=== PATIENT | female | born 1940 | race Caucasian/White ===

== ENCOUNTER 2019-03-08 13:39 | Inpatient (IN) | payer BC, OTHER ==
[2019-03-08 14:25] LABS: Absolute Lymphocytes (CBC) 0.5 K/uL (0.7-4.9); Hematocrit 42.3 % (36.0-45.0); Lymphocytes % 2.2 % (15.3-44.8); Monocytes % 2.6 % (3.3-12.3); RBC Red Blood Cell Count 4.55 M/uL (3.86-4.86)
[2019-03-08 14:34] LABS: Albumin 3.3 g/dL (3.4-5.0); Bilirubin Direct 0.2 mg/dL (0-0.2); Bilirubin Total 0.7 mg/dL (0.2-1.0); Potassium 3.1 mmol/L (3.5-5.1); Protein, Total 6.2 g/dL (6.4-8.2)
[2019-03-08 14:56] LABS: Platelet Estimate ADEQ
[2019-03-08 14:57] LABS: Blood Morphology Comment NOT SEEN (NOT SEEN)
[2019-03-08] MEDS ORDERED: NA CHLORIDE 0.9% 1,000 ML ONE ×2 (15:23→16:56)
[2019-03-08 15:41] LABS: Urine Bacteria <20 /HPF (<20); Urine RBC NONE SEEN /HPF (NONE SEEN)
[2019-03-08 15:42] LABS: Urine Culture Reflex Order NOT NEEDED
[2019-03-08 15:49] LABS: Urine Blood NEGATIVE (NEG); Urine Glucose NEGATIVE (NEG); Urine Protein 1+ (NEG); Urine pH 6.5 (5.0-7.0)
--- NOTE | 2019-03-08 16:09 | RAD REPORT ---
EXAM DESCRIPTION: CT - Abdomen Pelvis Wo Contrast - 03/08/2019 3:55 pm CLINICAL HISTORY: Abdominal pain. diarrhea, hypotensive COMPARISON: No comparisons TECHNIQUE: CT imaging of the abdomen and pelvis was performed without contrast. Solid organ, bowel a nd vascular assessment is limited due to lack of IV and oral contrast. All CT scans are performed using dose optimization technique as appropriate and may include automated exposure control or mA/KV adjustment according to patient size. FINDINGS: Linear subsegmental atelectasis is present in both lung bases. The liver, spleen, pancreas, adrenal glands and kidneys are within normal limits for a limited non-co ntrast examination. No bowel obstruction, free air, free fluid or abscess. The appendix is not identified as a discrete structure, however, no secondary findings of appendicitis are identified. The osseous structures are within normal limits. IMPRESSION: No acute intra-abdominal or pelvic findings. A limited non-contrast examination was performed as detailed.
--- NOTE | 2019-03-08 16:09 | RAD REPORT ---
EXAM DESCRIPTION: RAD - Chest Single View - 03/08/2019 3:56 pm CLINICAL HISTORY: chills, hypotension Chest pain. COMPARISON: <Comparisons> FINDINGS: Portable technique limits examination quality. The lungs are grossly clear. The heart is normal in size. No displaced fractures. IMPRESSION: No acute intrathoracic process suspected.
--- NOTE | 2019-03-08 16:35 | ER ---
Nurse's Notes [facility] Name: Griselda Dexter Age: 78 yrs Sex: Female : 1940 Arrival Date: 03/08/2019 Time: 13:46 Bed 6 Private MD: Diagnosis: Hypotension, unspecified;Dehydration;Acute kidney failure, unspecified;Bandemia Presentation: 03/08 13:37 Presenting complaint: EMS states: called out by pt's friend who had been trying to get sv a hold of her, pt was able to ambulate to her door after about an hour. EMS reports pt was sluggish, fatigued and "maybe slurred speech." BP 98/60 HR-120s, orthostatics done BP 80/40, pt c/o loose stool. NIH negative. Transition of care: patient was not received from another setting of care. Onset of symptoms was March 07, 2019. Risk Assessment: Do you want to hurt yourself or someone else? Patient reports no desire to harm self or others. Initial Sepsis Screen: Does the patient meet any 2 criteria? HR > 90 bpm. Does the patient have a suspected source of infection? No. Patient's initial sepsis screen is negative. Care prior to arrival: Medication(s) given: Normal saline infusion, 1000 mL, IV initiated. 20 GA, in the left antecubital area. 13:37 Method Of Arrival: EMS: [facility] sv 13:37 Acuity: GAMAL 2 sv Historical: - Allergies: 14:39 Compazine; sv - Home Meds: 14:39 Metoprolol Tartrate Oral [Active]; Aspirin Oral [Active]; sv - PMHx: 14:39 Hypertension; hyperthyroidism; sv - Immunization history:: Adult Immunizations up to date. - Social history:: Smoking status: Patient/guardian denies using tobacco. - Ebola Screening: : No symptoms or risks identified at this time. - Family history:: not pertinent. - Hospitalizations: : No recent hospitalization is reported. Screenin:41 Abuse screen: Denies threats or abuse. Denies injuries from another. Nutritional sv screening: No deficits noted. Tuberculosis screening: No symptoms or risk factors identified. Fall Risk None identified. Assessment: 13:45 General: Appears in no apparent distress. uncomfortable, Behavior is calm, cooperative. tr5 Pain: Complains of pain in back of head. Neuro: Level of Consciousness is awake, alert, Oriented to person, place, time, Turn Down Worker are equal bilaterally Moves all extremities. Reports weakness Denies blurred vision. Cardiovascular: Heart tones present Bruits absent Capillary refill < 3 seconds Pulses are all present. Respiratory: Airway is patent Trachea midline Respiratory effort is even, unlabored, Respiratory pattern is regular, symmetrical, Breath sounds are clear bilaterally. GI: Abdomen is flat, Stools are reported to be diarrhea. Last BM was March 08, 2019. Bowel sounds present X 4 quads. Abd is soft and non tender Reports diarrhea, nausea. : No signs and/or symptoms were reported regarding the genitourinary system. EENT: No signs and/or symptoms were reported regarding the EENT system. Derm: Skin is intact, is healthy with good turgor, Skin is dry, Skin is pink, warm \\T\\ dry. Musculoskeletal: Capillary refill < 3 seconds. 15:11 Reassessment: Patient and/or family updated on plan of care and expected duration. Pain tr5 level reassessed. Patient is alert, oriented x 3, equal unlabored respirations, skin warm/dry/pink. 15:15 Reassessment: CT called to come get pt for CT. sv 16:54 Reassessment: Patient appears in no apparent distress at this time. No changes from sv previously documented assessment. Patient and/or family updated on plan of care and expected duration. Pain level reassessed. Patient is alert, oriented x 3, equal unlabored respirations, skin warm/dry/pink. 17:26 Reassessment: Patient appears in no apparent distress at this time. Patient and/or sv family updated on plan of care and expected duration. Pain level reassessed. Patient is alert, oriented x 3, equal unlabored respirations, skin warm/dry/pink. Vital Signs: 13:45 BP 83 / 52; Pulse 102; Resp 18; Temp 98.7; Pulse Ox 99% ; Weight 65.77 kg; Height 5 ft. sv 4 in. (162.56 cm); Pain 0/10; 14:42 BP 84 / 49; Pulse 101; Resp 24; Pulse Ox 100% on R/A; sv 15:10 BP 93 / 62; Pulse 103; Resp 24; Pulse Ox 98% on R/A; sv 16:28 BP 81 / 46; Pulse 101; Resp 18; Pulse Ox 98% on R/A; sv 17:17 BP 104 / 50; Pulse 103; Resp 18; Temp 98.5(O); Pulse Ox 98% on R/A; sv 17:33 BP 118 / 58; Pulse 100; Resp 19 S; Pulse Ox 95% on R/A; sg 18:00 BP 116 / 56; Pulse 100; Resp 17; Temp 98.7; Pulse Ox 98% on R/A; Pain 0/10; sg 13:45 Body Mass Index 24.89 (65.77 kg, 162.56 cm) sv ED Course: 13:37 Maintain EMS IV. Dressing intact. Good blood return noted. Site clean \\T\\ dry. Gauge \\T\\ sv site: 20G L AC. 13:45 Initial lab(s) drawn, by me, sent to lab. sv 13:45 Arm band placed on. sv 13:45 Patient has correct armband on for positive identification. Placed in gown. Bed in low sv position. Call light in reach. Side rails up X2. spray worker on. Pulse ox on. NIBP on. Door closed. Head of bed elevated. 13:46 Patient arrived in ED. rn 13:47 Ramon Baron MD is Attending Physician. rn 13:54 Francisco Rand, FANNIE is Primary Nurse. tr5 14:02 Basic Metabolic Panel Sent. sv 14:28 Radiology exam delayed due to lab results not completed at this time. (BUN/Creatinine). mw3 14:37 Triage completed. sv 15:11 Straight cath inserted, using sterile technique, 16 Fr. Specimen obtained. Returned sv lyndon urine. Patient tolerated well. 15:[address] Scan, Awaiting for x-ray. sv 15:32 EKG done, by ED staff, reviewed by Ramon Baron MD. em1 15:55 CT Abd/Pelvis - Without Contrast In Process Unspecified. EDMS 15:[address] from [address]. sv 15:57 XRAY Chest (1 view) In Process Unspecified. EDMS 16:33 Chelle Parra MD is Hospitalizing Provider. rn 16:35 First set of blood cultures drawn by me. Inserted saline lock: 22 gauge in right sg antecubital area, using aseptic technique. Blood collected. 17:16 Procalcitonin Sent. sv 17:30 Awaiting bed assignment. sv 17:50 No provider procedures requiring assistance completed. Inserted sg 17:56 Patient admitted, IV remains in place. intact, No redness/swelling at site. sg Administered Medications: 14:01 Drug: NS 0.9% 1000 ml Route: IV; Rate: 1000 ml; Site: left antecubital; tr5 15:23 Follow up: Response: No adverse reaction; IV Status: Completed infusion; IV Intake: sv 1000ml 15:23 Drug: NS 0.9% 1000 ml Route: IV; Rate: 1000 ml; Site: left antecubital; sv 16:25 Drug: NS 0.9% 1000 ml Route: IV; Rate: 125 ml/hr; Site: left antecubital; tr5 18:00 Follow up: IV Status: Infusion continued upon admission sg 16:54 Drug: Zosyn 3.375 grams Route: IVPB; Infused Over: 60 mins; Site: left antecubital; sv 17:25 Follow up: Response: No adverse reaction; IV Status: Completed infusion; IV Intake: sv 100ml 17:25 Drug: vancoMYCIN 1 grams Route: IVPB; Infused Over: 2 hrs; Site: right antecubital; sv 18:00 Follow up: Response: No adverse reaction; IV Status: Infusion continued upon admission sg Intake: 15:23 IV: 1000ml; Total: 1000ml. sv 17:25 IV: 100ml; Total: 1100ml. sv Output: 15:11 Urine: 300ml (Straight Cath); Total: 300ml. sv Outcome: 16:34 Decision to Hospitalize by Provider. rn 17:55 Admitted to Tele accompanied by tech, family with patient, via stretcher, room 427, sg with chart, Report called to Lacie RN 17:55 Condition: stable 17:55 Instructed on the need for admit, safety practices, Demonstrated understanding of instructions, follow-up care. 18:01 Patient left the ED. Signatures: Dispatcher [employer] Maritza Crowe RN RN Tam Hale RN RN sg Nieto, Roman, MD MD rn Martinez, Eric em1 Elena Nguyen RN RN Yany Pompa mw3 Francisco Rand RN RN tr5 Corrections: (The following items were deleted from the chart) 17:24 17:17 BP 104 / 50; Pulse 103bpm; Resp 18bpm; Pulse Ox 98% RA; sv sv
--- NOTE | 2019-03-08 16:35 | EDPHYS ---
Physician Documentation [facility] Name: Grisleda Dexter Age: 78 yrs Sex: Female : 1940 Arrival Date: 03/08/2019 Time: 13:46 Bed 6 Private MD: ED Physician Ramon Baron HPI: 03/08 14:45 This 78 yrs old Female presents to ER via EMS with complaints of General rn Weakness, Diarrhea. 14:45 The patient presents to the emergency department with nausea, diarrhea. Onset: The rn symptoms/episode began/occurred today. Possible causes: unknown. The symptoms are aggravated by nothing. The symptoms are alleviated by nothing. Severity of symptoms: At their worst the symptoms were moderate in the emergency department the symptoms are unchanged. The patient has not experienced similar symptoms in the past. Family was trying to get a hold of patient, patient heard her banging on door but too weak to get up and to the door. Per friend, took patient an hour to get to door, reports generalized weakness, feels total body aches, no focal weakness. Reports had large loose bowel movement and difficult to get to bathroom in time. No cough/sob/rash. No head injury.. Historical: - Allergies: 14:39 Compazine; sv - Home Meds: 14:39 Metoprolol Tartrate Oral [Active]; Aspirin Oral [Active]; sv - PMHx: 14:39 Hypertension; hyperthyroidism; sv - Immunization history:: Adult Immunizations up to date. - Social history:: Smoking status: Patient/guardian denies using tobacco. - Ebola Screening: : No symptoms or risks identified at this time. - Family history:: not pertinent. - Hospitalizations: : No recent hospitalization is reported. ROS: 14:45 Constitutional: + chills and body aches Eyes: Negative for injury, pain, redness, and pattern shop supervisor, ENT: Negative for injury, pain, and discharge, Cardiovascular: Negative for chest pain, palpitations, and edema, Respiratory: Negative for shortness of breath, cough, wheezing, and pleuritic chest pain, Abdomen/GI: Negative for abdominal pain, vomiting, and constipation, MS/Extremity: Negative for injury and deformity, Skin: Negative for injury, rash, and discoloration, Neuro: Negative for headache, numbness, tingling, and seizure. Exam: 14:45 Constitutional: This is a well developed, well nourished patient who is awake, alert, rn appears weak and dehydrated Head/Face: Normocephalic, atraumatic. Eyes: Pupils equal round and reactive to light, extra-ocular motions intact. Lids and lashes normal. Conjunctiva and sclera are non-icteric and not injected. Cornea within normal limits. Periorbital areas with no swelling, redness, or edema. ENT: very dry cracked lips, dry MM Cardiovascular: tachycardic, regular, no murmur Respiratory: mild tachypnea, no retractions Abdomen/GI: soft, non-tender MS/ Extremity: Pulses equal, no cyanosis. Neurovascular intact. Neuro: Awake and alert, GCS 15, oriented to person, place, time, and situation. Cranial nerves II-XII grossly intact. Motor strength 4/5 in all extremities. Sensory grossly intact. Cerebellar exam normal. Vital Signs: 13:45 BP 83 / 52; Pulse 102; Resp 18; Temp 98.7; Pulse Ox 99% ; Weight 65.77 kg; Height 5 ft. sv 4 in. (162.56 cm); Pain 0/10; 14:42 BP 84 / 49; Pulse 101; Resp 24; Pulse Ox 100% on R/A; sv 15:10 BP 93 / 62; Pulse 103; Resp 24; Pulse Ox 98% on R/A; sv 16:28 BP 81 / 46; Pulse 101; Resp 18; Pulse Ox 98% on R/A; sv 17:17 BP 104 / 50; Pulse 103; Resp 18; Temp 98.5(O); Pulse Ox 98% on R/A; sv 17:33 BP 118 / 58; Pulse 100; Resp 19 S; Pulse Ox 95% on R/A; sg 18:00 BP 116 / 56; Pulse 100; Resp 17; Temp 98.7; Pulse Ox 98% on R/A; Pain 0/10; sg 13:45 Body Mass Index 24.89 (65.77 kg, 162.56 cm) sv MDM: 13:47 Patient medically screened. rn 16:31 Differential diagnosis: cholecystitis, pancreatitis, appendicitis, diverticulitis, rn viral gastroenteritis, gastroenteritis, diarrhea, sepsis, UTI, pneumonia. Data reviewed: vital signs, nurses notes, lab test result(s), radiologic studies, CT scan, plain films, and as a result, I will admit patient. Counseling: I had a detailed discussion with the patient and/or guardian regarding: the historical points, exam findings, and any diagnostic results supporting the discharge/admit diagnosis, lab results, radiology results, the need for further work-up and treatment in the hospital. Response to treatment: the patient's symptoms have mildly improved after treatment, and as a result, I will admit patient. Admission orders: after a detailed discussion of the patient's condition and case, the admit orders are written by me. ED course: Pt without clear source for hypotension, reports chills, but afebrile, ct abdomen no acute findings, no acute findings on cxr, UA normal, elevated WBC of 20k, no skin findings of cellulitis. Still hypotensive after 1.5 L, will continue with fluids and assess response. Given high neutrophils and bandemia, will cover with broad spectrum abx and admit to Dr. Parra.. 03/08 13:49 Order name: Basic Metabolic Panel 03/08 13:49 Order name: CBC with Diff; Complete Time: 15:09 03/08 13:49 Order name: Hepatic Function; Complete Time: 14:37 03/08 13:49 Order name: Lipase; Complete Time: 14:37 03/08 13:50 Order name: Urine Culture 03/08 13:50 Order name: Urine Microscopic Only; Complete Time: 16:11 03/08 13:50 Order name: Flu; Complete Time: 14:37 03/08 13:51 Order name: Basic Metabolic Panel; Complete Time: 14:37 [facility] 03/08 14:38 Order name: Manual Differential; Complete Time: 15:09 [facility] 03/08 15:11 Order name: Urine Dipstick--Ancillary (enter results); Complete Time: 16:11 03/08 16:12 Order name: Stool Culture 03/08 16:20 Order name: Blood Culture Adult (2) 03/08 16:20 Order name: Lactate; Complete Time: 17:33 03/08 13:49 Order name: IV Saline Lock; Complete Time: 13:54 03/08 13:49 Order name: Labs collected and sent; Complete Time: 13:54 03/08 13:49 Order name: EKG; Complete Time: 13:51 rn 03/08 13:49 Order name: EKG - Nurse/Tech; Complete Time: 15:31 rn 03/08 14:38 Order name: CT Abd/Pelvis - Without Contrast; Complete Time: 16:11 rn 03/08 14:52 Order name: XRAY Chest (1 view); Complete Time: 16:11 rn 03/08 16:31 Order name: Procalcitonin rn 03/08 16:31 Order name: TSH; Complete Time: 17:33 rn 03/08 16:31 Order name: T4 Free; Complete Time: 17:33 rn 03/08 16:31 Order name: Procalcitonin EDW[facility] 03/08 13:50 Order name: Urine Dipstick-Ancillary (obtain specimen); Complete Time: 15:13 rn Administered Medications: 14:01 Drug: NS 0.9% 1000 ml Route: IV; Rate: 1000 ml; Site: left antecubital; tr5 15:23 Follow up: Response: No adverse reaction; IV Status: Completed infusion; IV Intake: sv 1000ml 15:23 Drug: NS 0.9% 1000 ml Route: IV; Rate: 1000 ml; Site: left antecubital; sv 16:25 Drug: NS 0.9% 1000 ml Route: IV; Rate: 125 ml/hr; Site: left antecubital; tr5 18:00 Follow up: IV Status: Infusion continued upon admission sg 16:54 Drug: Zosyn 3.375 grams Route: IVPB; Infused Over: 60 mins; Site: left antecubital; sv 17:25 Follow up: Response: No adverse reaction; IV Status: Completed infusion; IV Intake: sv 100ml 17:25 Drug: vancoMYCIN 1 grams Route: IVPB; Infused Over: 2 hrs; Site: right antecubital; sv 18:00 Follow up: Response: No adverse reaction; IV Status: Infusion continued upon admission sg Disposition: 03/08/19 16:34 Hospitalization ordered by Chelle Parra for Inpatient Admission. Preliminary diagnosis are Hypotension, unspecified, Dehydration, Acute kidney failure, unspecified, Bandemia. - Bed requested for Telemetry/MedSurg (Inpatient). - Status is Inpatient Admission. ss - Condition is Fair. - Problem is new. - Symptoms have improved. UTI on Admission? No Signatures: Dispatcher [employer] [facility] Maritza Godoy, RN RN Ramon Baron MD MD rn Smirch, Shelby, RN RN Jonatan Moran RN RN ja1 Francisco Rand, RN RN tr5 Tam Hale RN sg Corrections: (The following items were deleted from the chart) 14:39 14:38 CBC Smear Scan ordered. EDWY EDWY 14:40 13:51 Abdomen Pelvis W Con+CT.RAD.BRZ ordered. EDWY EDWY 17:44 16:34 Hospitalization Ordered by Chelle Parra MD for Inpatient Admission. Preliminary ja1 diagnosis is Hypotension, unspecified; Dehydration; Acute kidney failure, unspecified; Bandemia. Bed requested for Telemetry/MedSurg (Inpatient). Status is Inpatient Admission. Condition is Fair. Problem is new. Symptoms have improved. UTI on Admission? No. rn 18:01 17:44 03/08/2019 16:34 Hospitalization Ordered by Chelle Parra MD for Inpatient ss Admission. Preliminary diagnosis is Hypotension, unspecified; Dehydration; Acute kidney failure, unspecified; Bandemia. Bed requested for Telemetry/MedSurg (Inpatient). Status is Inpatient Admission. Condition is Fair. Problem is new. Symptoms have improved. UTI on Admission? No. ja1
[2019-03-08] MEDS ORDERED: PIPER/TAZO/NS 3.375gm 3.375 GM/100 ML BAG ONE (16:51)
[2019-03-08 17:26] LABS: Thyroid Stimulating Hormone 0.385 uIU/mL (0.360-3.740)
[2019-03-08] MEDS: VANCOMYCIN/NS 1 gm 1 GM/250 ML BAG IV SCH (18:00)
[2019-03-08] MEDS ORDERED: SODIUM CHL 0.9% 1000 ML BAG IV ONE (18:48)
[2019-03-08] MEDS ORDERED: NA CHLORIDE 0.9% 500 ML IV ONE (18:48)
[2019-03-08] MEDS ORDERED: ACETAMINOPHEN 325 MG TABLET PO PRN (18:49)
[2019-03-08] MEDS ORDERED: NA CHLORIDE 0.9% 1,000 ML IV SCH (19:00)
--- NOTE | 2019-03-08 20:02 | P.INFCA ---
Sepsis Focused Assessment - Sepsis Screen Result Severe Sepsis: Positive Septic Shock: Negative - Evaluation Current stage of sepsis: Severe sepsis - Vital Signs Reviewed: Yes Temperature: 100.5 F Heart rate: 115 Blood Pressure: 138/60 Respiratory Rate: 18 O2 Sat by Pulse Oximetry: 91 - Examination Heart: Regular rate/rhythm, S1, S2, Tachycardia Lungs: Clear bilaterally Peripheral pulses: 3+ Normal Peripheral pulse location: Radial, Femoral, Popliteal Capillary refill: Other (unable to evaluate patient has nail equatorial guinean, will order to take off and reevaluate.) Skin examination: Normal turgor, Not mottled
[2019-03-08] MEDS ORDERED: CEFEPIME 2 GM VIAL IV SCH (21:00)
[2019-03-08] MEDS ORDERED: CEFEPIME/SWI 2gm 2 GM/20 ML SYR IVP SCH (21:00)
[2019-03-08] MEDS: METRONIDAZOLE 500mg IVPB 500 MG/100 ML BAG IV SCH (21:38)
[2019-03-08] MEDS: NA CHLORIDE 0.9% 1,000 ML IV SCH (21:42)
[2019-03-09] MEDS ORDERED: NA CHLORIDE 0.9% IVPB SCH (00:07)
[2019-03-09] MEDS ORDERED: ACYCLOVIR IVPB SCH (00:07)
--- NOTE | 2019-03-09 00:34 | P.PN ---
Date of Service: 03/08/19 The patient was admitted due to sepsis without obvious source of infection. She was obtunded, difficult to arouse at the beginning of my shift, aroun 7:00 PM, her BP was on the lower side and she had spike fever. At this point, the patient was transferred to ICU for close monitoring. About 23:00, I was called again, because the patient was unresponsive, unable to follow commands. CT head w/o contrast was done, no obvious intracranial bleeding seen, still awaiting radiology report. Differential diagnosis include meningoencephalitis. I have attempted a lumbar punction, but it was unsuccessful. I have ordered a LP done by radiology. In the mean time will start empiric treatment with Acyclovir, and adjust empiric antibiotics. Will consult Dr Dean for evaluation and recommendations. Critical care time spendin minutes
[2019-03-09 00:40] LABS: Arterial Blood Carboxyhemoglob 1.2 % (0-1.5); Blood Gas Oxyhemoglobin 96.5 % (94-97); Blood O2 Saturation 98.4 % (92-98.5)
[2019-03-09] MEDS ORDERED: NA CHLORIDE 0.9% 500 ML IV ONE (00:52)
[2019-03-09] MEDS ORDERED: ACYCLOVIR INJ 600 MG in NA CHLORIDE 0.9% 100 ML IVPB SCH ×2 (01:00→21:00)
[2019-03-09] MEDS ORDERED: ACYCLOVIR NA 500 MG/VIAL IVPB ONE (01:33)
[2019-03-09] MEDS ORDERED: NA CHLORIDE 0.9% 100 ML ONE ×2 (01:34→02:39)
[2019-03-09] MEDS: AMPICILLIN/SULBACT 3 GM in NA CHLORIDE 0.9% 100 ML IVPB SCH ×2 (02:00→14:00)
[2019-03-09] MEDS: METRONIDAZOLE 500mg IVPB 500 MG/100 ML BAG IV SCH ×2 (02:21→08:41)
[2019-03-09] MEDS ORDERED: AMPICILLIN/SULBACTAM 3GM/VIAL ONE (02:38)
[2019-03-09] MEDS ORDERED: WATER FOR INJ,STERILE 20 ML ONE (03:03)
[2019-03-09] MEDS ORDERED: NA CHLORIDE 0.9% 1,000 ML IV ONE ×2 (03:42→06:13)
[2019-03-09 05:21] LABS: Absolute Lymphocytes (CBC) 0.9 K/uL (0.7-4.9); Basophils % 0.2 % (0-1.3); Eosinophils % 0.2 % (0-4.4); Hematocrit 36.6 % (36.0-45.0); Lymphocytes % 4.6 % (15.3-44.8); MPV 9.2 fL (7.6-11.3); Monocytes % 3.5 % (3.3-12.3); RBC Red Blood Cell Count 3.91 M/uL (3.86-4.86)
[2019-03-09 05:46] LABS: Albumin 2.5 g/dL (3.4-5.0); Bilirubin Total 0.6 mg/dL (0.2-1.0); Magnesium 1.6 mg/dL (1.8-2.4); Phosphorus 3.9 mg/dL (2.5-4.9); Potassium 3.3 mmol/L (3.5-5.1)
--- NOTE | 2019-03-09 06:10 | HP ---
Date of Admission: 03/08/2019 Code Status: Full. Primary Care Physician: Dr. Salgado. Chief Complaint: Generalized weakness, diarrhea. History Of Present Illness: The patient is a 78-year-old female with past medical history of hypertension, hyperthyroidism, who was in her usual state of health until day of admission when the patient had a sudden onset of generalized weakness. The patient states she was unable to get out of bed. It took her approximately an hour to get to the door, let her neighbor in. The patient does report large loose bowel movement, however, no blood. The patient otherwise denies any ill contacts. No cough, fever. The patient does report chills. She denies any abdominal pain. No nausea or vomiting. The patient has not been on any antibiotics recently. The patient's symptoms are constant, severe, and progressive. The patient was brought into the ER for further evaluation. Her workup revealed low blood pressure. She was in the 70s systolic, heart rate in the low 100s. The patient's white blood cell count was 22,000. Lactate and procalcitonin were elevated. No apparent source of infection is clear. Her UA was negative. Influenza screen was also negative. The patient did complain of some sore throat. The patient was resuscitated with IV fluids and then referred for admission. When seen in the ER, she was awake, alert, oriented x3, in moderate distress. Past Medical History: Hypertension, hyperthyroidism. Past Surgical History: None. Allergies: TO COMPAZINE. Medications: Metoprolol and aspirin. Social History: The patient denies tobacco use. Does drink alcohol daily. Drinks 2 glasses of wine every night. The patient lives by herself. Family History: The patient states the hypertension runs in the family. Review of Systems: Ten-point system reviewed, negative except as per HPI. Physical Examination: Vital Signs: Blood pressure 83/52, pulse 102, respirations 18, temperature 98.7 , O2 99% on room air. General: Awake, alert, oriented x3, ill-appearing female, in moderate distress , actively shaking with rigors. HEENT: Normocephalic, atraumatic. PERRLA. EOMI. Dry mucous membranes. Oropharynx is clear. Conjunctivae anicteric. Normal dentition. Minimal cyanosis around the lips. CV: S1, S2. Sinus tachycardia. Peripheral pulses present. No murmurs. Respiratory: Moving air well bilaterally. No wheezing or stridor. No use of accessory muscles. Gastrointestinal: Abdomen is soft, nontender, nondistended. Positive bowel sounds. Extremities: No clubbing or cyanosis. The patient does have pedal edema. No calf tenderness. Neuro: Cranial nerves 2 through 12 intact grossly. No focal neurological deficit. Speech is normal. Skin: No rashes. Normal skin turgor. Psych: Mood is okay. Affect is full. Insight and judgment are good. Laboratory Data: WBC 22.2, H and H 14.3 and 42.3, platelets 188, neutrophils 95 %, bands 20. Sodium 138, potassium 3.1, chloride 99, CO2 27, BUN 28, creatinine 2.16, unknown baseline glucose 92, lactate 3.2, calcium 7.9, AST 97, ALT 47, alkaline phosphatase 41, total protein 6.2, albumin 3.3, lipase 56. Procalcitonin 22.7. TSH 0.385, free T4 1.21. UA negative. Influenza screen negative. Imaging Studies: CT scan of the abdomen and pelvis shows no acute intraabdominal or pelvic finding. Does have linear subsegmental atelectasis in both lung bases. Chest x-ray shows no acute intrathoracic process suspected. Assessment And Plan: A 78-year-old female with: 1. Sepsis, unknown source. The patient's UA is negative. Chest x-ray is clear. CT abdomen does not show any intraabdominal abnormalities. The patient did report some sore throat and diarrhea. We will check throat culture and rapid strep. We will add broad-spectrum IV antibiotics including vancomycin, Flagyl, cefepime. We will obtain pancultures including blood cultures, urine cultures, throat culture as well as stool culture and sputum culture. No murmurs identified. The patient has lactate 3.2, procalcitonin is 22, white count is 22,000 with 20% bands, kidney dysfunction as well as liver dysfunction related to sepsis. We will give 30 mL/kg bolus. The patient's weight is 65 kg. She will require 2 L. 2. Hypotensive shock. Blood pressure in the 80s. She did respond to IV fluids. We will continue to monitor. 3. Acute kidney injury. We will monitor creatinine level. We will continue with IV fluids. Avoid NSAIDs. 4. Elevated liver enzyme. We will continue to monitor, likely secondary to sepsis. 5. Hypokalemia. We will replace and monitor. 6. Hyperthyroidism. TSH is normal. We will resume home medications as appropriate. 7. Deep vein thrombosis prophylaxis with Lovenox renally dosed. Plan: Admit the patient to Med-Surg, place as inpatient. Length of stay greater than 2 midnights. MADDY Voice ID: [id number]
[2019-03-09] MEDS ORDERED: NOREPINEPHRINE 4 MG in D5W 250 ML IV PRN (06:13)
[2019-03-09] MEDS ORDERED: CALCIUM GLUC 10% INJ 4.65 MEQ in NA CHLORIDE 0.9% 100 ML IV ONE (06:19)
[2019-03-09] MEDS ORDERED: MAGNESIUM SULFATE 1 gm IVPB 1 GM/100 ML BAG IV ONE (06:22)
[2019-03-09] MEDS: NA CHLORIDE 0.9% 1,000 ML IV SCH ×2 (06:29→14:00)
--- NOTE | 2019-03-09 06:37 | EKG ---
Test Date: 2019-03-08 Test Time: 15:30:04 Project Development Engineer: LIANNA MEASUREMENT RESULTS: Intervals: Rate: 98 [place]: 186 QRSD: 128 QT: 406 QTc: 518 [place]: P: 81 OH: 186 QRS: -41 T: 67 INTERPRETIVE STATEMENTS: Normal sinus rhythm Left axis deviation Left bundle branch block Abnormal ECG No previous ECG available for comparison Electronically Signed On 03-09-19 06:36:19 CDT by Juanito Lockett
[2019-03-09] MEDS ORDERED: CALCIUM GLUCONATE 1 GM IVPB 1 GM/50 ML BAG IV ONE (06:43)
[2019-03-09] MEDS: KCL 20 MEQ/100 mL IVPB 20 MEQ/100 ML BAG IV SCH ×2 (08:40→09:00)
[2019-03-09] MEDS: ACYCLOVIR INJ 600 MG in NA CHLORIDE 0.9% 100 ML IVPB SCH ×2 (08:41→16:48)
[2019-03-09] MEDS ORDERED: VANCOMYCIN 1 GM/VIAL IVPB SCH (09:00)
[2019-03-09 09:13] LABS: Magnesium 1.6 mg/dL (1.8-2.4)
[2019-03-09 09:15] LABS: Potassium 2.9 mmol/L (3.5-5.1)
[2019-03-09 10:13] LABS: Protime INR 1.43
--- NOTE | 2019-03-09 10:22 | RAD REPORT ---
EXAM DESCRIPTION: CT - Head Brain Wo Cont - 03/08/2019 11:03 pm CLINICAL HISTORY: Right-sided facial droop COMPARISON: None available TECHNIQUE: Axial CT of the head obtained from the skull apex to the skull base without contrast. FINDINGS: No acute intracranial hemorrhage identified. No mass, mass effect, shift of the midline, a bnormal extra-axial fluid collection or CT evidence of acute ischemic change identified. The ventricu lar system and sulcal spaces are mildly enlarged compatible with mild cerebral atrophy. Scattered a reas of hypodensity throughout the supratentorial white matter are nonspecific and may be related to chronic small vessel ischemic change. The visualized paranasal sinuses and the mastoids are clear. No skull fracture identified. Visualized orbits and globes are unremarkable. Atherosclerotic mirian cification of the intracranial internal carotid arteries. DLP: 780 mGy-cm IMPRESSION: 1. No acute intracranial abnormality by CT criteria. This exam was performed according to our departmental dose-optimization program, which includes autom ated exposure control, adjustment of the mA and/or kV according to patient size and/or use of iterati ve reconstruction technique. Electronically signed by: Claudio Willis 03/08/2019 11:21 PM CDT Due to temporary technical issues with the PACS/Fluency reporting system, reports are being signed by the in house radiologist as a courtesy to ensure prompt reporting. The interpreting radiologist is f ully responsible for the content of the report.
--- NOTE | 2019-03-09 14:25 | RAD REPORT ---
EXAM DESCRIPTION: RAD - Lumbar Puncture For Dx - 03/09/2019 2:18 pm CLINICAL HISTORY: Transient alteration of awareness, encephalitis COMPARISON: None. TECHNIQUE: Consent was obtained in the ICU prior to the procedure. Patient had no contraindicated al lergy or medication history. PT/INR studies within acceptable limits. Time-out procedure was performe d. The patient was placed in an oblique prone position on the fluoroscopic table. The skin of the lower back was prepped and draped in the usual sterile fashion. After anesthetizing the skin and deeper sof t tissues with 1% lidocaine, a 22 gauge needle was advanced into the thecal sac at the L3 level. Patient had moderate scoliosis. Patient had difficulty holding positioning for the examination. Intra thecal placement was confirmed. The initial CSF was blood-tinged. This cleared over the course of the examination and number occurred during the fourth tube collection. Fluid was somewhat opaque on all 4 tubes. Approximately 8-9 cc of CSF collected. At the conclusion of the procedure, the needle was withdrawn and a sterile bandage placed over the pu ncture site. The patient tolerated the procedure well without immediate complications. Patient was transferred back to the ICU for continued care. The obtain CSF was delivered to the laboratory along with a copy of the requested studies. IMPRESSION: Successful fluoroscopic guided lumbar puncture. All obtained fluid was sent to the lab for studies requested by the referring physician.
[2019-03-09 14:33] LABS: Body Fluid WBC 17023 /mm^3
[2019-03-09 14:36] LABS: Body Fluid WBC 14192 /mm^3
[2019-03-09 14:45] LABS: CSF Glucose 20 mg/dL (40-70)
--- NOTE | 2019-03-09 15:06 | PN ---
Date of Progress Note: 03/09/2019 Subjective: The patient seen and examined. Chart reviewed and case discussed with RN and Dr. Dean. Son at the bedside. Treatment plan explained. All questions answered. The patient apparently had deterioration of her condition overnight, became more obtunded, was transferred to the ICU. Today, she is more awake and alert. However, still somewhat confused. The patient experiencing photophobia. Medications: List reviewed. Physical Examination: Vital Signs: T-max is 100.5, T current is 99.3, heart rate 96, blood pressure 91/50, respirations 23, O2 99% on room air. General: Awake, alert, oriented x2, mildly confused, ill-appearing female, elderly. CV: S1 and S2. Regular rate and rhythm. Peripheral pulses present. Respiratory: Moving air well bilaterally. No wheezing or stridor. Gastrointestinal: Soft, nontender, and nondistended. Positive bowel sounds. Extremities: No clubbing, cyanosis, or edema. Neurologic: Nonfocal. The patient has photophobia and some pain with neck flexion. Laboratory Data: Sodium 145, potassium 2.9, chloride 114, CO2 22, BUN 28, creatinine 0.97, glucose 80, and calcium is 7, magnesium 1.6. WBC 20.2, H and H 12.4 and 36.6, platelets 125, neutrophils 91%. No bands. Cultures are pending. CT scan of the head personally reviewed shows no acute intracranial abnormalities. Assessment And Plan: A 78-year-old female with: 1. Sepsis, unclear source, possibly meningoencephalitis. IV antibiotics have been adjusted. Acyclovir was added last night. ID consultation pending. The patient's white count still elevated at 20,000; however, no bandemia. 2. Hypotensive shock. The patient now on pressors. Initially responded to IV fluids. 3. Acute metabolic encephalopathy, likely related to above. 4. Acute kidney injury. Creatinine is improving. We will continue to monitor. Avoid NSAIDs. 5. Elevated liver enzymes secondary to sepsis. 6. Hypokalemia. We will replace and monitor. 7. Hypomagnesemia. We will replace and monitor. 8. Hypothyroidism. TSH normal. We will continue medications. 9. Deep venous thrombosis prophylaxis with Lovenox, renally dose adjusted. Plan: Continue monitoring in ICU. LP has been ordered; however, may not be stable enough to go down to Radiology due to low blood pressure. Family updated. /SAILAJA Voice ID: [id number] Report ID: [id number] MTDD
[2019-03-09 15:27] LABS: Body Fluid Source CSF; Fluid Total Volume 8 ml
[2019-03-09 15:28] LABS: Appearance TURBID (CLEAR)
[2019-03-09 15:30] LABS: Color of fluid Red (COLORLESS)
[2019-03-09 15:33] LABS: Appearance TURBID (CLEAR); Body Fluid Source CSF; Color of fluid Pink (COLORLESS)
[2019-03-09] MEDS ORDERED: KCL 20 MEQ/100 mL IVPB 20 MEQ/100 ML BAG IV SCH ×2 (16:00→23:45)
[2019-03-09] MEDS ORDERED: LOPERAMIDE HCL 2 MG CAPSULE PO PRN (16:21)
[2019-03-09] MEDS ORDERED: LOPERAMIDE HCL 1 MG/5 ML UCUP PO PRN (16:27)
[2019-03-09] MEDS: CEFTRIAXONE/SWI 2gm 2 GM/20 ML SYR IVP SCH (16:48)
[2019-03-09] MEDS: NS KCL 20MEQ 20 MEQ/1,000 ML BAG IV SCH (17:00)
[2019-03-09] MEDS ORDERED: TRAMADOL HCL 50 MG TAB PO ONE (17:47)
--- NOTE | 2019-03-09 19:51 | CON ---
Subjective: This is a 78-year-old female I was consulted for sepsis. The patient initially came in with significant history of hypertension, hyperthyroidism. The patient was initially admitted to the general garg for weakness as she was found at home by her neighbor. The patient lives by herself an d not having any other problems. The patient is in the last 24 hours had about 8 to 10 bowel movemen ts. Her procalcitonin was elevated. CT scan of abdomen showed no acute intraabdominal or pelvic fin ding. Chest x-ray done on 03/08 shows the patient has no acute infiltrates. The patient is currentl y getting Unasyn, Flagyl, and vancomycin and acyclovir. A lumbar puncture was performed earlier toda y. Blood cultures are still pending. Urine cultures negative for any growth. Influenza A and B ant igen are negative. Past Medical History: Hypertension, hyperthyroidism. Past Surgical History: None. Social History: Tobacco negative. Alcohol: Occasional wine glass. Current Medications: Include Unasyn, Flagyl, and vancomycin. Family History: Noncontributory. Review of Systems: A 10-point review was performed. Physical Examination: General: This is a 78-year-old female, lying in bed, not in any acute cardiopulmonary distress. Vital Signs: Temperature 98, pulse 95, respiration 22, blood pressure 113/82. HEENT: Unremarkable. Neck: Supple. Lungs: Basal crackles. Heart: S1, S2. Regular. Abdomen: Soft, nontender. Bowel sounds present. Extremities: No edema. Laboratory Data: Shows WBC 20,000, hemoglobin 12.4, platelets are 125. Sodium 145, potassium 2.9, c hloride 114, bicarb 22, BUN 28, creatinine 0.97, glucose is 80. Lactic acid is 4.2. Procalcitonin i s 22.77. Assessment/plan: Leukocytosis with right shift in a 78-year-old female, and sepsis with procalcitoni n of 22, currently on broad-spectrum antibiotic including Unasyn and vancomycin and Flagyl. The arcelia ent is also getting acyclovir because of her altered mental status. Lumbar puncture was performed wh ich is pending, and CT head done yesterday shows no acute intracranial problems. Continue broad-spec trum antibiotic, pending culture results. We will follow the patient closely. NF/MODL Voice ID: [id number] Report ID: [id number]
[2019-03-09] MEDS: ATORVASTATIN 20 MG TAB PO SCH (21:33)
[2019-03-09] MEDS: FENTANYL CITR 100 MCG/2 ML IV PRN (22:00)
[2019-03-10] MEDS: ACYCLOVIR INJ 600 MG in NA CHLORIDE 0.9% 100 ML IVPB SCH ×3 (00:24→17:26)
[2019-03-10] MEDS: AMPICILLIN/SULBACT 3 GM in NA CHLORIDE 0.9% 100 ML IVPB SCH ×2 (01:56→14:20)
[2019-03-10] MEDS: NS KCL 20MEQ 20 MEQ/1,000 ML BAG IV SCH ×3 (01:56→17:26)
[2019-03-10] MEDS: FENTANYL CITR 100 MCG/2 ML IV PRN ×3 (02:03→18:59)
[2019-03-10] MEDS ORDERED: dexAMETHasone 10 MG/ML VIAL IV ONE (02:51)
[2019-03-10 05:21] LABS: Absolute Lymphocytes (CBC) 0.6 K/uL (0.7-4.9); Eosinophils % 1.7 % (0-4.4); Hematocrit 37.8 % (36.0-45.0); Lymphocytes % 3.4 % (15.3-44.8); MPV 9.5 fL (7.6-11.3); Monocytes % 3.7 % (3.3-12.3); RBC Red Blood Cell Count 3.98 M/uL (3.86-4.86)
[2019-03-10 05:41] LABS: ALT/SGPT 52 U/L (12-78); AST/SGOT 93 U/L (15-37); Albumin 2.5 g/dL (3.4-5.0); Alkaline Phosphatase 36 U/L (45-117); BUN Blood Urea Nitrogen 22 mg/dL (7-18); Bicarbonate 22 mmol/L (21-32); Bilirubin Total 0.5 mg/dL (0.2-1.0); Glucose Level 86 mg/dL (74-106); Magnesium 2.3 mg/dL (1.8-2.4); Potassium 3.4 mmol/L (3.5-5.1); Protein, Total 5.6 g/dL (6.4-8.2); Sodium Level 149 mmol/L (136-145)
--- NOTE | 2019-03-10 07:31 | P.PN ---
Date of Service: 03/09/19 Called regarding patient having pain. Patient has been hypotensive so will use fentanyl for pain control. Reviewed patient's spinal fluid results. Consistent with severe bacterial meningitis. Close contacts will need antibiotic prophylactically. Will notify Infectious Control.
[2019-03-10] MEDS: KCL 20 MEQ/100 mL IVPB 20 MEQ/100 ML BAG IV SCH ×2 (07:45→09:57)
[2019-03-10] MEDS ORDERED: HOME MED 1 EA UNK (Simvastatin [Simvastatin] 40 MG) PO SCH (09:00)
[2019-03-10] MEDS: CEFTRIAXONE/SWI 2gm 2 GM/20 ML SYR IVP SCH ×2 (09:58→20:58)
--- NOTE | 2019-03-10 11:22 | RAD REPORT ---
EXAM DESCRIPTION: Chest Single View CLINICAL HISTORY: 78 years Female, PICC placement COMPARISON: None. FINDINGS: The heart and mediastinum are remarkable for atherosclerosis of the thoracic aorta. A right-sided PICC line is identified with distal tip in the superior vena cava.. The lung mosqueda are clear of active infiltrates. The pulmonary vascularity is unremarkable. No active pleural disease is present. IMPRESSION: 1. Successful placement of right-sided PICC line. Electronically signed by: Ishmael Martin MD 03/09/2019 11:06 PM CDT Due to temporary technical issues with the PACS/Fluency reporting system, reports are being signed by the in house radiologist as a courtesy to ensure prompt reporting. The interpreting radiologist is f ully responsible for the content of the report.
[2019-03-10] MEDS ORDERED: METOPROLOL TARTRATE 5 MG/5 ML INJ IV STA ×2 (11:43→17:09)
[2019-03-10] MEDS: ENOXAPARIN 80 MG/0.8 ML SQ SCH ×2 (12:21→20:57)
[2019-03-10] MEDS ORDERED: LOPERAMIDE HCL 2 MG CAPSULE PO PRN (13:45)
[2019-03-10] MEDS ORDERED: METOPROLOL XL 25 MG TAB PO ONE (14:02)
--- NOTE | 2019-03-10 14:04 | ECHO ---
HEIGHT: 5 ft 4 in WEIGHT: 145 lb oz DATE OF STUDY: 03/10/[address]: Ritchie Trujillo MD 2-DIMENSIONAL: YES M.MODE: YES DOPPLER: YES COLOR FLOW: YES TDS: NO PORTABLE: NO DEFINITY: NO BUBBLE STUDY: NO DIAGNOSIS: ATRIAL FIBRILLATION CARDIAC HISTORY: CATHERIZATION: NO SURGERY: NO PROSTHETIC VALVE: NO PACEMAKER: NO MEASUREMENTS (cm) DIASTOLIC (NORMALS) SYSTOLIC (NORMALS) IVSd 1.1 (0.6-1.2) LA Diam 3.6 (1.9-4.0) LVEF 44% LVIDd 4.0 (3.5-5.7) LVIDs 3.2 (2.0-3.5) %FS 22% LVPWd 1.1 (0.6-1.2) Ao Diam 2.5 (2.0-3.7) 2 DIMENSIONAL ASSESSMENT: RIGHT ATRIUM: NORMAL LEFT ATRIUM: NORMAL RIGHT VENTRICLE: NORMAL LEFT VENTRICLE: NORMAL TRICUSPID VALVE: NORMAL MITRAL VALVE: NORMAL PULMONIC VALVE: NORMAL AORTIC VALVE: NORMAL PERICARDIAL EFFUSION: NONE AORTIC ROOT: NORMAL LEFT VENTRICULAR WALL MOTION: DOPPLER/COLOR FLOW: COMMENTS: TECHNICALLY DIFFICULT. ATRIAL FIBRILLATION. MILD GLOBAL HYPOKINESIS EJECTION FRACTION 44%. NO EFFUSION. TECHNOLOGIST: MANDEEP YANCEY
--- NOTE | 2019-03-10 17:45 | P.PN ---
Subjective Date of Service: 03/10/19 Chief Complaint: Altered mental status Patient seen and examined at bedside. Son at bedside. Chart reviewed and case discussed with nursing staff. Reports improving mentation. Patient now alert oriented x3. Speech almost back to baseline. Continues to complain of photosensitivity. Denies any chest pain, headache, vision changes, dizziness, shortness, GI complaints. Patient converted to atrial fibrillation with RVR today. Denies any palpitations or chest pain at this time. Denies any prior history of atrial fibrillation Review of Systems 10-point ROS is otherwise unremarkable Physical Examination - Vital Signs Temperature: 98.6 F Blood Pressure: 119/63 Pulse: 141 Respirations: 16 Pulse Ox (%): 97 - Physical Exam General: Alert, In no apparent distress, Oriented x3 Neck: Other (Positive nuchal rigidity) Respiratory: Clear to auscultation bilaterally, Normal air movement Cardiovascular: Normal S1 S2, Irregular heart rate/rhythm (Irregularly irregular ) Gastrointestinal: Normal bowel sounds, No tenderness Musculoskeletal: No tenderness Integumentary: No rashes - Studies Microbiology Data (last 24 hrs): 03/08/19 15:05 Catheterized Urine Dorothy Count - Final <10,000 CFU/ML. 03/08/19 15:05 Catheterized Urine - Final No growth. Assessment And Plan - Plan A 78-year-old female with: Sepsis -source seems to be bacterial meningitis. -IV antibiotics have been adjusted. Continue vancomycin, Rocephin and unasyn. -ID on board. Bacterial meningitis -Lumbar puncture results consistent with bacterial meningitis -Patient on proper IV antibiotics -she is status post 1 time dexamethasone IV. Pending CSF bacterial analysis. If cultures positive for strep pneumonia, will need dexamethasone and rifampin added to regimen. -Infection control notified. Close contacts will likely need prophylactic antibiotic -CSF studies/bacterial analysis pending. New atrial fibrillation with RVR -1 time IV Lopressor given -metoprolol 25 mg b.i.d. started -echo ordered, pending -cardiology consult pending Hypotensive shock. Improving -Wean pressors. Initially responded to IV fluids. Acute metabolic encephalopathy, likely related to above. Now improving, almost back to baseline. Acute kidney injury. -Creatinine is improving. -We will continue to monitor. Avoid NSAIDs. Elevated liver enzymes secondary to sepsis. Hypokalemia. We will replace and monitor. Hypomagnesemia. We will replace and monitor. Hypothyroidism. TSH normal. We will continue medications. Deep venous thrombosis prophylaxis with Lovenox, renally dose adjusted. Plan: Continue monitoring in ICU. LP has been ordered; however, may not be stable enough to go down to Radiology due to low blood pressure. Family updated.
[2019-03-10] MEDS: VANCOMYCIN/NS 1 gm 1 GM/250 ML BAG IV SCH (17:50)
[2019-03-10] MEDS ORDERED: METOPROLOL XL 25 MG TAB PO SCH (18:00)
[2019-03-10] MEDS: ATORVASTATIN 20 MG TAB PO SCH (20:00)
[2019-03-10] MEDS: METOPROLOL XL 50 MG TAB PO SCH (20:00)
[2019-03-10] MEDS ORDERED: POTASSIUM 25 MEQ EFFERV TAB PO ONE (21:18)
[2019-03-11] MEDS: ACYCLOVIR INJ 600 MG in NA CHLORIDE 0.9% 100 ML IVPB SCH ×3 (00:19→16:27)
[2019-03-11] MEDS: NS KCL 20MEQ 20 MEQ/1,000 ML BAG IV SCH ×4 (01:00→20:21)
[2019-03-11] MEDS: AMPICILLIN/SULBACT 3 GM in NA CHLORIDE 0.9% 100 ML IVPB SCH ×2 (01:47→13:55)
[2019-03-11] MEDS: METOPROLOL XL 50 MG TAB PO SCH (05:28)
[2019-03-11 05:47] LABS: BUN Blood Urea Nitrogen 18 mg/dL (7-18); Bicarbonate 23 mmol/L (21-32); Glucose Level 129 mg/dL (74-106); Potassium 3.6 mmol/L (3.5-5.1); Sodium Level 146 mmol/L (136-145)
[2019-03-11 05:53] LABS: Absolute Lymphocytes (CBC) 1.2 K/uL (0.7-4.9); Basophils % 0.1 % (0-1.3); Eosinophils % 0.1 % (0-4.4); Hematocrit 36.7 % (36.0-45.0); Lymphocytes % 6.4 % (15.3-44.8); MPV 10.4 fL (7.6-11.3); Monocytes % 5.9 % (3.3-12.3); RBC Red Blood Cell Count 3.96 M/uL (3.86-4.86)
--- NOTE | 2019-03-11 06:57 | EKG ---
Test Date: 2019-03-10 Test Time: 10:19:24 School Age Program Associate: DELMY MEASUREMENT RESULTS: Intervals: Rate: 144 [place]: QRSD: 112 QT: 334 QTc: 517 [place]: P: [place]: QRS: -1 T: 103 INTERPRETIVE STATEMENTS: Atrial fibrillation with rapid ventricular response Low voltage QRS Septal infarct, age undetermined Possible Lateral infarct, age undetermined Abnormal ECG Compared to ECG 03/08/2019 15:30:04 Low QRS voltage now present Myocardial infarct finding now present Sinus rhythm no longer present Left-axis deviation no longer present Left bundle-branch block no longer present Electronically Signed On 03-11-19 06:53:42 CDT by Juanito Lockett
[2019-03-11] MEDS ORDERED: SOTALOL HCL 80 MG TAB PO ONE (07:22)
[2019-03-11] MEDS ORDERED: DIGOXIN 0.25 MG TABLET PO ONE (07:23)
[2019-03-11] MEDS: POTASSIUM CL SA 10 MEQ TAB PO ONE ×2 (07:24→07:42)
[2019-03-11] MEDS: CEFTRIAXONE/SWI 2gm 2 GM/20 ML SYR IVP SCH ×2 (08:21→20:23)
[2019-03-11] MEDS: ENOXAPARIN 80 MG/0.8 ML SQ SCH ×2 (08:21→20:21)
[2019-03-11] MEDS ORDERED: KCL 20 MEQ/100 mL IVPB 20 MEQ/100 ML BAG IV SCH (11:00)
--- NOTE | 2019-03-11 12:27 | P.PN ---
Subjective Date of Service: 03/11/19 Chief Complaint: Altered mental status Patient seen and examined at bedside. Son at bedside. Chart reviewed and case discussed with nursing staff. Reports improving mentation. Patient now alert oriented x3. Reports worsening of speech and some coughing with swallowing. Continues to complain of photosensitivity. Denies any chest pain, headache, vision changes, dizziness, shortness, GI complaints. Patient converted to atrial fibrillation with RVR yesterday, now back to normal sinus rhythm on sotalol. Denies any palpitations or chest pain at this time. Denies any prior history of atrial fibrillation Review of Systems 10-point ROS is otherwise unremarkable Physical Examination - Vital Signs Temperature: 97.3 F Blood Pressure: 134/100 Pulse: 136 Respirations: 18 Pulse Ox (%): 93 - Physical Exam General: Alert, In no apparent distress, Oriented x3 HEENT: Atraumatic, PERRLA, EOMI Neck: Supple, JVD not distended, Other (Plus nuchal rigidity) Respiratory: Clear to auscultation bilaterally, Normal air movement Cardiovascular: Regular rate/rhythm, Normal S1 S2 Gastrointestinal: Normal bowel sounds, No tenderness Musculoskeletal: No tenderness Integumentary: No rashes Neurological: Normal speech, Normal tone, Normal affect Lymphatics: No axilla or inguinal lymphadenopathy - Studies Microbiology Data (last 24 hrs): 03/08/19 15:05 Catheterized Urine [place] Count - Final <10,000 CFU/ML. 03/08/19 15:05 Catheterized Urine - Final No growth. Assessment And Plan - Plan A 78-year-old female with: Sepsis -source seems to be bacterial meningitis. -IV antibiotics have been adjusted. Continue vancomycin, Rocephin and unasyn. -ID on board. Bacterial meningitis -Lumbar puncture results consistent with bacterial meningitis. CSF studies/ bacterial analysis pending. -Patient on proper IV antibiotics -she is status post 1 time dexamethasone IV. Pending CSF bacterial analysis. If cultures positive for strep pneumonia, will need dexamethasone and rifampin added to regimen. -Infection control notified. Close contacts will need prophylactic antibiotic New atrial fibrillation with RVR - now converted back to normal sinus rhythm -2 time IV Lopressor given -metoprolol 25 mg b.i.d. started, change to sotalol 80 mg b.i.d. by Cardiology. Will likely need to continue sotalol upon discharge. -echo with AFib, mild global hypokinesis and ejection fraction 44% -cardiology consult, recommendations appreciated. Hypotensive shock. Resolved -off of pressors. Acute metabolic encephalopathy, likely related to above. Now improving, almost back to baseline. - if continues to worsen, will require an MRI - speech therapy consult for speech/Swallow evaluation. May require MBS Acute kidney injury. -Creatinine is improving. -We will continue to monitor. Avoid NSAIDs. Elevated liver enzymes secondary to sepsis. Hypokalemia. We will replace and monitor. Hypomagnesemia. We will replace and monitor. Hypothyroidism. TSH normal. We will continue medications. Deep venous thrombosis prophylaxis with Lovenox, renally dose adjusted. Plan: Continue monitoring in ICU, continue IV antibiotics. CSF studies pending ; Critical Care: Yes
[2019-03-11] MEDS: VANCOMYCIN/NS 1 gm 1 GM/250 ML BAG IV SCH (12:28)
[2019-03-11] MEDS: LACTOBACILLUS/ACIDOPHILUS TAB PO SCH ×2 (13:53→20:21)
--- NOTE | 2019-03-11 15:58 | PN ---
Subjective: The patient is lying in bed, continuing to have photophobia and no nausea and vomiting. The patient's white count stays persistently high at 18,000. No fevers. Objective: Vital Signs: Temperature 97.3, pulse 130, respiration 18, blood pressure 134/100. Lungs: Basal crackles. Heart: S1, S2. Regular. Abdomen: Soft, nontender. Bowel sounds present. Extremity: No edema. Laboratory Data: Shows WBC 18645, hemoglobin 12.6, platelets 137. Sodium 146, potassium 3.6, chlori de 116, bicarb 23, BUN 18, creatinine 0.39, glucose 129. Cultures are still negative from 03/08. Assessment And Plan: Meningitis, most likely bacterial origin. Continue empiric antibiotic till we have the results back. Repeat blood cultures. Start patient on probiotic and Questran. We will fol low the patient as needed. NF/MODL Voice ID: [id number] Report ID: [id number]
[2019-03-11] MEDS: CHOLESTYRAMINE/ASP 4 GM/PKT PO SCH (17:00)
[2019-03-11] MEDS: SOTALOL HCL 80 MG TAB PO SCH (17:00)
[2019-03-11] MEDS: ATORVASTATIN 20 MG TAB PO SCH (20:21)
[2019-03-12] MEDS: ACYCLOVIR INJ 600 MG in NA CHLORIDE 0.9% 100 ML IVPB SCH ×2 (01:32→08:48)
[2019-03-12] MEDS: METOPROLOL TARTRATE 5 MG/5 ML INJ IV SCH ×2 (02:15→02:30)
[2019-03-12] MEDS: AMPICILLIN/SULBACT 3 GM in NA CHLORIDE 0.9% 100 ML IVPB SCH ×2 (02:30→16:00)
[2019-03-12] MEDS: NS KCL 20MEQ 20 MEQ/1,000 ML BAG IV SCH (04:55)
[2019-03-12] MEDS: VANCOMYCIN/NS 1 gm 1 GM/250 ML BAG IV SCH (05:24)
--- NOTE | 2019-03-12 05:51 | CON ---
Admitted by Dr. Trujillo on 03/08/2019. Reason For Consultation: Atrial fibrillation. History Of Present Illness: Ms. Dexter is a 78-year-old woman, who came in with what appears to be m eningitis. Has a history of hypertension, dyslipidemia, and hypothyroidism. She, while being treate d, went into rapid atrial fibrillation, unresponsive to IV metoprolol. She was placed on metoprolol 25 mg 1 p.o. b.i.d. She was asymptomatic with her atrial fibrillation, although her rate was rapid. An echocardiogram showed mild global hypokinesis, probably secondary to the atrial fibrillation. Latoya salomon has never had a history of CHF before. She denied any chest pain or syncope. Allergies: SHE IS ALLERGIC TO COMPAZINE. Review of Systems: Negative. Social History: Negative. Family History: Negative. Medications: At home include aspirin, Zocor, lisinopril with hydrochlorothiazide, and metoprolol. Physical Examination: Vital Signs: Stable. She was afebrile. She was alert and oriented to name, but not place or time. She was obtunded and slightly confused. She was in atrial fibrillation at a rate of about 120. Afe brile. HEENT: Negative. Neck: Supple with no bruit. Chest: Clear. Cardiac: Revealed atrial fibrillation. Abdomen: Benign. Extremities: Revealed no clubbing, cyanosis, or edema. Diagnostic Data: She had a white count of 20,000, potassium of 3.4. Echocardiogram showed mild glob al hypokinesis with ejection fraction 44%. EKG showed atrial fibrillation. Impression And Plan: Rapid atrial fibrillation. We will continue IV Lopressor. I will give her ano ther 10 mg of IV Lopressor in addition to her initial 5. I will increase her Lopressor to 50 mg 1 p. o. b.i.d. We need to correct her potassium and a calcium, both of which were low. If she does not c onvert with a beta-viviana as it is, we will probably switch her to Betapace 80 mg b.i.d. I am berna g her ejection fraction is low because of the atrial fibrillation and hopefully that will improve mary k to normal once her atrial fibrillation resolves. She has had a negative stress test in the office in the past. I, otherwise, agree with her present regimen including her multiple antibiotics, steroi ds, and Lipitor. Certainly given 1 dose of IV digoxin 0.5 mg may help with her heart rate as well. I will continue to follow her. MARCOS Voice ID: [id number] Report ID: [id number]
[2019-03-12] MEDS: SOTALOL HCL 80 MG TAB PO SCH ×2 (05:53→17:27)
[2019-03-12 06:16] LABS: BUN Blood Urea Nitrogen 22 mg/dL (7-18); Bicarbonate 22 mmol/L (21-32); Glucose Level 135 mg/dL (74-106); Potassium 3.5 mmol/L (3.5-5.1); Sodium Level 151 mmol/L (136-145)
[2019-03-12] MEDS ORDERED: POTASSIUM 25 MEQ EFFERV TAB PO ONE (07:44)
[2019-03-12] MEDS: CHOLESTYRAMINE/ASP 4 GM/PKT PO SCH ×2 (08:47→17:26)
[2019-03-12] MEDS: ENOXAPARIN 80 MG/0.8 ML SQ SCH ×2 (08:48→21:15)
[2019-03-12] MEDS: CEFTRIAXONE/SWI 2gm 2 GM/20 ML SYR IVP SCH ×2 (08:48→21:12)
[2019-03-12] MEDS: LACTOBACILLUS/ACIDOPHILUS TAB PO SCH ×3 (09:00→21:15)
[2019-03-12] MEDS ORDERED: FUROSEMIDE 40 MG/4 ML VIAL IV ONE (15:35)
--- NOTE | 2019-03-12 16:11 | P.PN ---
Subjective Date of Service: 03/12/19 Chief Complaint: Altered mental status Patient seen and examined at bedside. Son at bedside. Chart reviewed and case discussed with nursing staff. Reports improving mentation. Patient now alert oriented x3. Speech is improvement. Able to [place]. Continues to complain of photosensitivity. Denies any chest pain, headache, vision changes, dizziness, shortness, GI complaints. Patient converted to atrial fibrillation with RVR, now back to normal sinus rhythm on sotalol. Denies any palpitations or chest pain at this time. Denies any prior history of atrial fibrillation Review of Systems 10-point ROS is otherwise unremarkable Physical Examination - Vital Signs Temperature: 97 F Blood Pressure: 163/98 Pulse: 89 Respirations: 21 Pulse Ox (%): 99 - Physical Exam General: Alert, In no apparent distress, Oriented x3 Respiratory: Clear to auscultation bilaterally, Normal air movement Cardiovascular: Regular rate/rhythm, Normal S1 S2 Gastrointestinal: Normal bowel sounds, No tenderness Musculoskeletal: No tenderness Integumentary: No rashes Neurological: Normal speech, Normal tone, Normal affect Lymphatics: No axilla or inguinal lymphadenopathy - Studies Microbiology Data (last 24 hrs): 03/08/19 17:10 Stool Culture & Sensitivity - Final Medications List Reviewed: Yes Assessment And Plan - Plan A 78-year-old female with: Sepsis -source seems to be bacterial meningitis. Culture + for Neiserria -IV antibiotics have been adjusted. Continue Rocephin and unasyn. -ID on board. Bacterial meningitis -Lumbar puncture results consistent with bacterial meningitis. CSF studies/ bacterial analysis + for Neiserria -Patient on Iv rocephin and Unasyn. IV acyclovir and Vanc DC -she is status post 1 time dexamethasone IV. -Infection control notified. Close contacts will need prophylactic antibiotic New atrial fibrillation with RVR - now converted back to normal sinus rhythm -2 time IV Lopressor given -metoprolol 25 mg b.i.d. started, change to sotalol 80 mg b.i.d. by Cardiology. Will likely need to continue sotalol upon discharge. -echo with AFib, mild global hypokinesis and ejection fraction 44% -cardiology consult, recommendations appreciated. Hypotensive shock. Resolved -off of pressors. Acute metabolic encephalopathy, likely related to above. -Now improving, almost back to baseline. - if worsen, will require an MRI - speech therapy consult for speech/Swallow evaluation. May require MBS Acute kidney injury. -Creatinine is improving. -We will continue to monitor. Avoid NSAIDs. Elevated liver enzymes secondary to sepsis. Hypokalemia. We will replace and monitor. Hypomagnesemia. We will replace and monitor. Hypothyroidism. TSH normal. We will continue medications. Deep venous thrombosis prophylaxis with Lovenox, renally dose adjusted. Plan: Continue monitoring in ICU, continue IV antibiotics. Discharge Plan: Home Plan to discharge in: Greater than 2 days - Code Status/Comfort Care Code Status Assessed: Yes Critical Care: Yes
[2019-03-12] MEDS: ATORVASTATIN 20 MG TAB PO SCH (21:15)
[2019-03-13] MEDS: AMPICILLIN/SULBACT 3 GM in NA CHLORIDE 0.9% 100 ML IVPB SCH ×2 (02:04→13:58)
[2019-03-13 05:32] LABS: BUN Blood Urea Nitrogen 22 mg/dL (7-18); Bicarbonate 30 mmol/L (21-32); Glucose Level 122 mg/dL (74-106); Magnesium 1.8 mg/dL (1.8-2.4); Potassium 3.1 mmol/L (3.5-5.1); Sodium Level 149 mmol/L (136-145)
[2019-03-13] MEDS ORDERED: MAGNESIUM SULFATE 1 gm IVPB 1 GM/100 ML BAG IV ONE (06:19)
[2019-03-13] MEDS: SOTALOL HCL 80 MG TAB PO SCH ×2 (06:37→17:57)
[2019-03-13] MEDS: KCL 20 MEQ/100 mL IVPB 20 MEQ/100 ML BAG IV SCH ×2 (06:37→08:54)
[2019-03-13] MEDS ORDERED: SOTALOL HCL 80 MG TAB PO ONE (08:44)
[2019-03-13] MEDS: ENOXAPARIN 80 MG/0.8 ML SQ SCH (08:55)
[2019-03-13] MEDS: LACTOBACILLUS/ACIDOPHILUS TAB PO SCH ×3 (08:55→21:07)
[2019-03-13] MEDS: CEFTRIAXONE/SWI 2gm 2 GM/20 ML SYR IVP SCH ×2 (08:56→21:07)
[2019-03-13] MEDS: CHOLESTYRAMINE/ASP 4 GM/PKT PO SCH ×2 (08:56→17:54)
--- NOTE | 2019-03-13 09:16 | P.PN ---
Subjective Date of Service: 03/13/19 (Hospitalist note) Chief Complaint: Meningitis Subjective: Improving (Patient is doing better no new complaints hemodynamically stable discomfort has decreased) Patient is improving no new complaints denies any headaches no weakness of extremities she is very alert responsive cooperative asking a lot of questions about her meningitis Review of Systems 10-point ROS is otherwise unremarkable Physical Examination - Vital Signs Temperature: 97 F Blood Pressure: 121/91 Pulse: 104 Respirations: 17 Pulse Ox (%): 100 - Physical Exam General: Alert, In no apparent distress, Oriented x3 Neck: Supple Respiratory: Clear to auscultation bilaterally Cardiovascular: No edema, Regular rate/rhythm, Normal S1 S2 Gastrointestinal: Normal bowel sounds, Soft and benign Neurological: Normal speech, Normal strength at 5/5 x4 extr - Studies Medications List Reviewed: Yes Assessment & Plan - Problems (Diagnosis) (1) 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 Eliquis Qualifiers: Atrial fibrillation type: paroxysmal Qualified Code(s): I48.0 - Paroxysmal atrial fibrillation (3) Acute hypernatremia Current Visit: Yes Status: Acute Plan: Start on Daiana normal saline with potassium
[2019-03-13 10:26] LABS: Hematocrit 42.3 % (36.0-45.0); MPV 9.9 fL (7.6-11.3); RBC Red Blood Cell Count 4.57 M/uL (3.86-4.86)
[2019-03-13] MEDS: NACHLORIDE 0.45% 1,000 ML with POTASSIUM CL 10 MEQ IV SCH ×2 (11:45)
--- NOTE | 2019-03-13 12:18 | PN ---
Date of Progress Note: 03/12/2019 Ms. Dexter was placed on Betapace 80 mg 1 p.o. b.i.d. because of failure to respond to beta blockers and digoxin for atrial fibrillation. She has converted to sinus rhythm and remains in sinus rhythm. We will continue her Betapace 80 mg 1 p.o. b.i.d. Continue her present regimen for meningitis. I w ill eventually repeat an echocardiogram while she is in sinus rhythm to see what her ejection fractio n has done. It was about 40% to 45% while she was in atrial fibrillation. No change in therapy at t his point. JULIO C/SAILAJA Voice ID: [id number] Report ID: [id number]
--- NOTE | 2019-03-13 13:42 | PN ---
Subjective: Ms. Dexter has been followed and treated for atrial fibrillation. She failed beta block ers and digoxin. She was placed on Betapace 80 mg 1 p.o. b.i.d. and this is keeping her normal sinus rhythm most of the time. She has had a breakthrough atrial fibrillation this morning at a rate of a bout 110. I will give her another 80 mg of Betapace this morning in addition to her usual 80 mg in t he morning. We will continue the dose at 80 mg 1 p.o. b.i.d. We may have to go to a higher dose. A gain, the issue of anticoagulation will be discussed further with primary care physician. At this po int with her meningitis and her Neisseria infection, I would personally continue the Lovenox and hold on oral anticoagulation at least until her infection is cleared. JULIO C/SAILAJA Voice ID: [id number] Report ID: [id number]
--- NOTE | 2019-03-13 17:10 | PN ---
Subjective: The patient is lying in bed. The patient is being transferred to regular floor from ICU . Was able to communicate little better today. Objective: Vital Signs: Temperature 97, pulse 72, respirations 19, blood pressure 189/56. HEENT: Unremarkable. Neck: Supple. Lungs: Basal crackles. Heart: S1, S2. Regular. Abdomen: Soft. Extremity: No edema. Laboratory Data: Shows neisseria meningitidis and blood culture sensitivity is pending. The patient is currently on Rocephin and Unasyn. Assessment And Plan: Neisseria meningitidis to be treated at least 3-4 weeks, consider transferring the patient to long-term acute care. We will follow the patient closely. NF/MODL Voice ID: [id number] Report ID: [id number]
[2019-03-13] MEDS ORDERED: APIXABAN 2.5 MG TABLET PO SCH (21:00)
[2019-03-13] MEDS: ATORVASTATIN 20 MG TAB PO SCH (21:06)
[2019-03-13] MEDS: APIXABAN 5 MG TABLET PO SCH (21:07)
[2019-03-14] MEDS: NACHLORIDE 0.45% 1,000 ML with POTASSIUM CL 10 MEQ IV SCH ×2 (01:49)
[2019-03-14] MEDS: AMPICILLIN/SULBACT 3 GM in NA CHLORIDE 0.9% 100 ML IVPB SCH (01:51)
[2019-03-14] MEDS: SOTALOL HCL 80 MG TAB PO SCH ×2 (06:19→16:58)
[2019-03-14] MEDS: CEFTRIAXONE/SWI 2gm 2 GM/20 ML SYR IVP SCH ×2 (09:00→23:00)
[2019-03-14] MEDS: LACTOBACILLUS/ACIDOPHILUS TAB PO SCH ×3 (09:34→22:59)
[2019-03-14] MEDS: APIXABAN 5 MG TABLET PO SCH ×2 (09:34→22:59)
[2019-03-14] MEDS: CHOLESTYRAMINE/ASP 4 GM/PKT PO SCH ×2 (09:35→16:57)
--- NOTE | 2019-03-14 10:24 | P.PN ---
Subjective Date of Service: 03/14/19 (Hospital is) Chief Complaint: Meningitis, hypertension Subjective: Improving Patient is doing much better denies any headache has some weakness the eating and drinking no new complaints Review of Systems Unremarkable Physical Examination - Vital Signs Temperature: 97.1 F Blood Pressure: 169/78 Pulse: 71 Respirations: 16 Pulse Ox (%): 95 - Physical Exam General: Alert, In no apparent distress, Oriented x3 Neck: Supple Respiratory: Clear to auscultation bilaterally Cardiovascular: No edema Gastrointestinal: Normal bowel sounds, Soft and benign - Studies Microbiology Data (last 24 hrs): 03/08/19 16:50 Blood - Blood Aerobic Blood Culture - Final Neisseria Meningitidis Neisseria Meningitidis#2 03/08/19 16:50 Blood - Blood Gram Stain - Final 03/08/19 16:50 Blood - Blood Anaerobic Blood Culture - Final No growth in 5 days. 03/08/19 16:35 Blood - Blood Aerobic Blood Culture - Final No growth in 5 days. 03/08/19 16:35 Blood - Blood Anaerobic Blood Culture - Final No growth in 5 days. 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 Eliquis stable resume all home losartan Qualifiers: Atrial fibrillation type: paroxysmal Qualified Code(s): I48.0 - Paroxysmal atrial fibrillation (3) Acute hypernatremia Current Visit: Yes Status: Acute Plan: Start on Daiana normal saline with potassium
[2019-03-14 10:39] LABS: BUN Blood Urea Nitrogen 18 mg/dL (7-18); Bicarbonate 30 mmol/L (21-32); Glucose Level 102 mg/dL (74-106); Potassium 3.2 mmol/L (3.5-5.1); Sodium Level 145 mmol/L (136-145)
[2019-03-14] MEDS ORDERED: POTASSIUM CL SA 10 MEQ TAB PO ONE (11:57)
[2019-03-14] MEDS ORDERED: POTASSIUM 25 MEQ EFFERV TAB PO ONE (21:00)
[2019-03-14] MEDS: ATORVASTATIN 20 MG TAB PO SCH (22:59)
[2019-03-15] MEDS: SOTALOL HCL 80 MG TAB PO SCH ×2 (05:36→17:16)
[2019-03-15] MEDS ORDERED: POTASSIUM CL SA 10 MEQ TAB PO ONE ×2 (06:00→14:18)
[2019-03-15] MEDS: LOSARTAN/HCTZ 50-12.5 PO SCH (09:14)
[2019-03-15] MEDS: LACTOBACILLUS/ACIDOPHILUS TAB PO SCH ×3 (09:14→21:42)
[2019-03-15] MEDS: CHOLESTYRAMINE/ASP 4 GM/PKT PO SCH ×2 (09:15→17:15)
[2019-03-15] MEDS: APIXABAN 5 MG TABLET PO SCH ×2 (09:15→21:42)
[2019-03-15] MEDS: CEFTRIAXONE/SWI 2gm 2 GM/20 ML SYR IVP SCH ×2 (09:16→21:42)
[2019-03-15 09:58] LABS: BUN Blood Urea Nitrogen 12 mg/dL (7-18); Bicarbonate 31 mmol/L (21-32); Glucose Level 101 mg/dL (74-106); Potassium 3.5 mmol/L (3.5-5.1); Sodium Level 145 mmol/L (136-145)
--- NOTE | 2019-03-15 10:56 | P.PN ---
Subjective Date of Service: 03/15/19 Chief Complaint: Meningitis, hypertension Patient is doing better denies any headaches Review of Systems Unremarkable Physical Examination - Vital Signs Temperature: 97.7 F Blood Pressure: 149/69 Pulse: 74 Respirations: 16 Pulse Ox (%): 92 - Physical Exam General: Alert, Oriented x3 Respiratory: Clear to auscultation bilaterally Cardiovascular: No edema, Normal pulses - Studies Microbiology Data (last 24 hrs): 03/08/19 16:50 Blood - Blood Aerobic Blood Culture - Final Neisseria Meningitidis Neisseria Meningitidis#2 03/08/19 16:50 Blood - Blood Gram Stain - Final 03/08/19 16:50 Blood - Blood Anaerobic Blood Culture - Final No growth in 5 days. 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 Eliquis stable resume all home losartan Qualifiers: Atrial fibrillation type: paroxysmal Qualified Code(s): I48.0 - Paroxysmal atrial fibrillation (3) Acute hypernatremia Current Visit: Yes Status: Acute Plan: Start on Daiana normal saline with potassium
--- NOTE | 2019-03-15 14:39 | PN ---
Date of Progress Note: 03/15/2019 Subjective: Ms. Dexter had been in the hospital for a few days because of Neisseria meningitidis and sepsis. Had atrial fibrillation that has been controlled with Betapace 80 mg 1 p.o. b.i.d. She has been in normal sinus rhythm now for about 48 hours. No cardiac symptoms reported. She is in sinus rhythm. The plan is to continue her Betapace when she is ready to go home or be discharged. She nee ds to be on Eliquis or Xarelto and I will leave that up to the primary care physician. She will need to have another echocardiogram in about 2 to 3 months while she is in sinus rhythm to see if her eje ction fraction normalizes. Continue her present regimen otherwise. Today, she really has no complai nts. She is edematous, however, in the lower extremity, possibly secondary to being inactive for abo ut 10 days now. I would consider low-dose diuresis. From my standpoint, whenever she is ready to go to a longer-term facility for physical therapy, it is okay by me. The details were discussed with t matthew patient and her son. I will see her as an outpatient. JULIO C/SAILAJA Voice ID: [id number] Report ID: [id number]
--- NOTE | 2019-03-15 15:27 | PN ---
Date of Progress Note: 03/14/2019 History Of Present Illness: Ms. Dexter was transferred from the ICU to telemetry. She had been ther e for Neisseria meningitidis and sepsis. Had atrial fibrillation that we treated with digoxin and Lo pressor, which failed. She will switch to Betapace 80 mg b.i.d. She had an extra 1 dose on 1 day. She has been in sinus rhythm now for about 48 hours. Her ejection fraction was about 45% when she wa s in atrial fibrillation. We will continue her present regimen for now. JULIO C/SAILAJA Voice ID: [id number] Report ID: [id number]
[2019-03-15] MEDS: ATORVASTATIN 20 MG TAB PO SCH (21:42)
[2019-03-15] MEDS: NYSTATIN PWDR 100000 UNIT/GM TOP SCH (21:44)
[2019-03-16] MEDS: SOTALOL HCL 80 MG TAB PO SCH ×2 (04:48→17:05)
[2019-03-16 05:18] LABS: BUN Blood Urea Nitrogen 7 mg/dL (7-18); Bicarbonate 31 mmol/L (21-32); Glucose Level 104 mg/dL (74-106); Potassium 3.1 mmol/L (3.5-5.1); Sodium Level 142 mmol/L (136-145)
[2019-03-16] MEDS ORDERED: POTASSIUM 25 MEQ EFFERV TAB PO ONE (09:00)
[2019-03-16] MEDS: NYSTATIN PWDR 100000 UNIT/GM TOP SCH ×2 (09:00→21:00)
[2019-03-16] MEDS: CEFTRIAXONE/SWI 2gm 2 GM/20 ML SYR IVP SCH ×2 (09:58→21:22)
[2019-03-16] MEDS: CHOLESTYRAMINE/ASP 4 GM/PKT PO SCH ×2 (09:58→16:57)
[2019-03-16] MEDS: APIXABAN 5 MG TABLET PO SCH ×2 (10:00→21:22)
[2019-03-16] MEDS: LOSARTAN/HCTZ 50-12.5 PO SCH (10:00)
[2019-03-16] MEDS: LACTOBACILLUS/ACIDOPHILUS TAB PO SCH ×3 (10:00→21:22)
--- NOTE | 2019-03-16 12:50 | EKG ---
Test Date: 2019-03-16 Test Time: 06:40:51 Decorator Inspector: RT-O MEASUREMENT RESULTS: Intervals: Rate: 85 AL: 170 QRSD: 114 QT: 456 QTc: 542 [place]: P: 64 AL: 170 QRS: -29 T: 80 INTERPRETIVE STATEMENTS: Normal sinus rhythm Septal infarct, age undetermined Possible Lateral infarct, age undetermined Prolonged QT Abnormal ECG Compared to ECG 03/16/2019 03:33:35 Prolonged QT interval now present Atrial fibrillation no longer present Ventricular premature complex(es) no longer present Myocardial infarct finding still present Electronically Signed On 03-16-19 12:49:19 CDT by Juanito Lockett
--- NOTE | 2019-03-16 12:51 | EKG ---
Test Date: 2019-03-16 Test Time: 03:33:35 Finger Grip Machine Operator: RT-O MEASUREMENT RESULTS: Intervals: Rate: 131 [place]: QRSD: 110 QT: 362 QTc: 534 [place]: P: [place]: QRS: -16 T: 115 INTERPRETIVE STATEMENTS: Atrial fibrillation with rapid ventricular response with premature ventricular or aberrantly conducted complexes Septal infarct, age undetermined Possible Lateral infarct, age undetermined Abnormal ECG Compared to ECG 03/10/2019 10:19:24 Ventricular premature complex(es) now present Myocardial infarct finding still present Electronically Signed On 03-16-19 12:49:28 CDT by Juanito Lockett
--- NOTE | 2019-03-16 12:51 | EKG ---
Test Date: 2019-03-16 Test Time: 03:32:41 Manager It Security: RT-O MEASUREMENT RESULTS: Intervals: Rate: 135 [place]: QRSD: 112 QT: 268 QTc: 402 [employer]: P: [place]: QRS: -19 T: 138 INTERPRETIVE STATEMENTS: Atrial fibrillation with rapid ventricular response Septal infarct, age undetermined Possible Lateral infarct, age undetermined Abnormal ECG Compared to ECG 03/10/2019 10:19:24 No significant changes Electronically Signed On 03-16-19 12:49:30 CDT by Juanito Lockett
--- NOTE | 2019-03-16 21:13 | PN ---
Date of Progress Note: 03/16/2019 Code Status: Full. Subjective: The patient is seen and examined, chart reviewed, and case discussed with RN. I am familiar with this patient from admission. The patient appears significantly better. Mental status seems to be back to baseline. Son is at the bedside. The patient still has decreased appetite, feels very weak. Medications: List reviewed. Physical Examination: Vital Signs: Temperature 98.7, heart rate 89, blood pressure 171/77, respirations 17, O2 93% on room air. General: Awake, alert, oriented x3. Elderly female, not in any acute distress. CV: S1, S2. Irregular rate and rhythm. Peripheral pulses present. Respiratory: Moving air well bilaterally. No wheezing. Gastrointestinal: Abdomen is soft, nontender, nondistended. Positive bowel sounds. Extremities: No clubbing, cyanosis, or edema. Neuro: Cranial nerves 2 through 12 intact grossly. No focal neurological deficits. Speech is normal. Skin: No rashes. Normal skin turgor. Laboratory Data: Sodium 142, potassium 3.1, chloride 104, CO2 31, BUN 7, creatinine 0.36, glucose 104, calcium 8.1. Repeat potassium level is 3.4. WBC is pending. Bacterial antigen are growing neisseria. Blood cultures growing out neisseria meningitidis. Stool cultures negative. Assessment And Plan: A 78-year-old female with: 1. Acute meningitis secondary to Neisseria meningitidis, improved. Continue IV antibiotics. We will need to discuss with ID regarding duration and if we can switch to oral. 2. Generalized weakness secondary to above. The patient will be working with PT. The patient wants to go to [facility] as her family member owns a facility. 3. Atrial fibrillation, paroxysmal. Continue with rate control. Continue Eliquis. 4. Hypokalemia. We will replace and monitor. 5. Acute hypernatremia, improved. 6. Bacteremia secondary to Neisseria meningitidis. The patient will need IV antibiotics. We will discuss further with Dr. Dean. The patient is going to SNF. 7. Sepsis, resolved. 8. Acute metabolic encephalopathy, resolved. 9. Hypotensive shock, resolved off pressors. 10. Acute kidney injury. Creatinine normalized. 11. Elevated liver enzymes secondary to sepsis, improving. 12. Hypothyroidism. Continue Synthroid. Plan: Discharge to [facility] once accepted. SA/MODL Voice ID: [id number] Report ID: [id number] AYLA
[2019-03-16] MEDS: ATORVASTATIN 20 MG TAB PO SCH (21:22)
[2019-03-16] MEDS: ENSURE ENLIVE 237 ML CAN PO SCH (21:23)
[2019-03-17] MEDS: SOTALOL HCL 80 MG TAB PO SCH ×2 (05:02→17:06)
[2019-03-17 05:18] LABS: Absolute Lymphocytes (CBC) 1.6 K/uL (0.7-4.9); Basophils % 0.1 % (0-1.3); Eosinophils % 1.1 % (0-4.4); Hematocrit 37.7 % (36.0-45.0); Lymphocytes % 13.4 % (15.3-44.8); MPV 8.7 fL (7.6-11.3); RBC Red Blood Cell Count 4.09 M/uL (3.86-4.86)
[2019-03-17 05:33] LABS: BUN Blood Urea Nitrogen 6 mg/dL (7-18); Bicarbonate 34 mmol/L (21-32); Glucose Level 112 mg/dL (74-106); Potassium 3.1 mmol/L (3.5-5.1); Sodium Level 140 mmol/L (136-145)
[2019-03-17] MEDS ORDERED: POTASSIUM CL SA 10 MEQ TAB PO ONE (06:00)
[2019-03-17] MEDS: NYSTATIN PWDR 100000 UNIT/GM TOP SCH ×2 (09:00→20:00)
[2019-03-17] MEDS: LOSARTAN/HCTZ 50-12.5 PO SCH (09:17)
[2019-03-17] MEDS: CHOLESTYRAMINE/ASP 4 GM/PKT PO SCH ×2 (09:17→17:05)
[2019-03-17] MEDS: LACTOBACILLUS/ACIDOPHILUS TAB PO SCH ×3 (09:17→19:53)
[2019-03-17] MEDS: CEFTRIAXONE/SWI 2gm 2 GM/20 ML SYR IVP SCH ×2 (09:17→19:54)
[2019-03-17] MEDS: APIXABAN 5 MG TABLET PO SCH ×2 (09:17→19:54)
[2019-03-17] MEDS: ENSURE ENLIVE 237 ML CAN PO SCH ×2 (09:18→19:54)
--- NOTE | 2019-03-17 11:55 | PN ---
Date of Progress Note: 03/16/2019 I am continuing to follow Ms. Dexter for atrial fibrillation. She has been on Betapace right now for about 3 days and has not had any further atrial fibrillation. She is in normal sinus rhythm. Her Q T is not prolonged. She still feels weak and fatigued and short of breath most likely secondary to h er recent sepsis from Neisseria meningitidis. She needs to have some physical therapy prior to disch arge. From a heart standpoint, we need to keep her on Betapace. She needs to be on anticoagulant bowen ch as Xarelto or Eliquis when she goes home. Her echocardiogram in atrial fibrillation showed an eje ction of 40-45%, and I will repeat her echocardiogram in sinus rhythm in the near future in the offic e, and I will see her then. I will sign off her case for now. JULIO C/SAILAJA Voice ID: [id number] Report ID: [id number]
[2019-03-17] MEDS ORDERED: METOPROLOL TARTRATE 5 MG/5 ML INJ IV PRN (13:52)
[2019-03-17] MEDS: metroNIDAZOLE 500 MG TABLET PO SCH (17:05)
--- NOTE | 2019-03-17 19:23 | PN ---
Date of Progress Note: 03/17/2019 Subjective: The patient seen and examined. Chart reviewed and case discussed with RN and Dr. Dean . The patient doing better. No complaints overnight. Medications: List reviewed. Physical Examination: Vital Signs: Temperature 97.8, heart rate 83, blood pressure 160/76, respirations 18, O2 94% on room air. General: Awake, alert, oriented x3. Elderly female, not in any acute distress. CV: S1, S2, irregularly irregular. Peripheral pulses present. Respiratory: Moving air well bilaterally. No wheezing or stridor. Gastrointestinal: Abdomen is soft, nontender, nondistended. Positive bowel sounds. Extremities: No clubbing, cyanosis, or edema. Neurologic: Nonfocal. Laboratory Data: WBC 12.3, H and H 13.2 and 37.7, platelets 362, neutrophils 75%. Sodium 140, potas sium 3.1, chloride 102, CO2 34, BUN 6, creatinine 0.33, glucose 112, calcium 8.2. 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 CSF culture, no growth. Assessment And Plan: A 78-year-old female with: 1.Acute meningitis secondary to neisseria meningitidis, improving. WBC count is trending down. We will discuss with ID regarding duration of antibiotics. 2.Bacteremia secondary to neisseria meningitidis. Continue IV antibiotics. May need long-term IV a ntibiotics. 3.Generalized weakness secondary to above, improving. Continue with physical therapy. 4.Atrial fibrillation paroxysmal, new onset. Continue Betapace. Use Lopressor IV as needed. The p atient again back in atrial fibrillation today with rate in the 140s. Continue Eliquis. Appreciate Dr. Lockett's input. 5.Hypokalemia replace. Replace and monitor. 6.Acute hyponatremia, improved. 7.Sepsis resolved. WBC count improving. Blood cultures show neisseria meningitis. We will continu e IV antibiotics. 8.Acute metabolic encephalopathy, resolved. 9.Hypotensive shock, off pressors. 10.Acute kidney injury, creatinine normalized. 11.Elevated liver enzymes secondary to sepsis. 12.Hypothyroidism, continue Synthroid. Plan: Discharge to [facility] once accepted and stable. SA/MODL Voice ID: [id number] Report ID: [id number]
[2019-03-17] MEDS: ATORVASTATIN 20 MG TAB PO SCH (19:54)
--- NOTE | 2019-03-17 21:31 | PN ---
Subjective: The patient is lying in bed. No new acute event. Denies any headache, nausea, vomiting , chest pain, abdominal pain. Having loose motions and diarrhea. C. diff is negative. Blood cultur es growing Neisseria meningitidis. Objective: Vital Signs: Temperature 98, pulse 88, respirations 17, blood pressure 148/66. Lungs: Basal crackles. Heart: S1, S2. Regular. Abdomen: Soft. Bowel sounds hyperactive. Extremity: No edema. Assessment And Plan: Neisseria meningitidis and bacteremia. Continue Rocephin total of 2 weeks. Al so start the patient on Flagyl for possible C. diff even though test is negative. Continue supportiv e care and apply barrier cream to the perirectal area and perineal area. Continue supportive care an d we will follow the patient as needed. JOHN/SAILAJA Voice ID: [id number] Report ID: [id number]
[2019-03-18] MEDS: metroNIDAZOLE 500 MG TABLET PO SCH ×2 (00:30→07:43)
[2019-03-18] MEDS: SOTALOL HCL 80 MG TAB PO SCH ×2 (05:39→17:02)
[2019-03-18 05:53] LABS: BUN Blood Urea Nitrogen 6 mg/dL (7-18); Bicarbonate 33 mmol/L (21-32); Glucose Level 106 mg/dL (74-106); Potassium 3.2 mmol/L (3.5-5.1); Sodium Level 141 mmol/L (136-145)
[2019-03-18] MEDS: CHOLESTYRAMINE/ASP 4 GM/PKT PO SCH ×2 (07:42→17:03)
[2019-03-18] MEDS: LACTOBACILLUS/ACIDOPHILUS TAB PO SCH ×3 (07:43→21:02)
[2019-03-18] MEDS: LOSARTAN/HCTZ 50-12.5 PO SCH (07:43)
[2019-03-18] MEDS: APIXABAN 5 MG TABLET PO SCH ×2 (07:43→21:02)
[2019-03-18] MEDS: ENSURE ENLIVE 237 ML CAN PO SCH ×2 (07:44→21:00)
[2019-03-18] MEDS ORDERED: MAGNESIUM SULFATE 1 gm IVPB 1 GM/100 ML BAG IV ONE (08:36)
[2019-03-18] MEDS ORDERED: POTASSIUM CL SA 10 MEQ TAB PO ONE (09:00)
[2019-03-18] MEDS: LOSARTAN POTASSIUM 50 MG TABLET PO SCH (09:00)
[2019-03-18] MEDS: NYSTATIN PWDR 100000 UNIT/GM TOP SCH ×2 (09:00→21:00)
[2019-03-18] MEDS: CEFTRIAXONE/SWI 2gm 2 GM/20 ML SYR IVP SCH (09:15)
--- NOTE | 2019-03-18 09:54 | EKG ---
Test Date: 2019-03-18 Test Time: 08:19:51 Rail Detector Car Operator: EMA MEASUREMENT RESULTS: Intervals: Rate: 81 [place]: 172 QRSD: 126 QT: 580 QTc: 673 [place]: P: 69 [place]: 172 QRS: -7 T: 66 INTERPRETIVE STATEMENTS: Sinus rhythm with frequent premature ventricular complexes in a pattern of bigeminy Intraventricular conduction delay Abnormal ECG Anterior infarct Compared to ECG 03/17/2019 14:07:05 Atrial fibrillation no longer present Electronically Signed On 03-18-19 09:53:45 CDT by Gorge Mireles
--- NOTE | 2019-03-18 09:58 | EKG ---
Test Date: 2019-03-17 Test Time: 14:07:05 Student Success Advisor: BERHANE MEASUREMENT RESULTS: Intervals: Rate: 135 [place]: QRSD: 112 QT: 306 QTc: 459 [place]: P: [place]: QRS: -29 T: 116 INTERPRETIVE STATEMENTS: Atrial fibrillation with rapid ventricular response with premature ventricular or aberrantly conducted complexes Septal infarct, age undetermined Possible Lateral infarct, age undetermined Abnormal ECG Compared to ECG 03/16/2019 06:40:51 Ventricular premature complex(es) now present Sinus rhythm no longer present Prolonged QT interval no longer present Myocardial infarct finding still present Electronically Signed On 03-18-19 09:57:30 CDT by Gorge Mireles
[2019-03-18] MEDS: CEFTRIAXONE/SWI 1gm 1 GM/10 ML SYR IV SCH (10:00)
[2019-03-18] MEDS: VANCOMYCIN ORAL SOLN 250 MG/5 ML OSYR PO SCH ×3 (13:59→21:01)
[2019-03-18] MEDS ORDERED: WATER FOR INJ,STERILE 10 ML IV SCH ×2 (14:00)
[2019-03-18] MEDS ORDERED: ALTEPLASE 2 MG/VIAL IV SCH ×2 (14:00)
--- NOTE | 2019-03-18 14:15 | PN ---
Mrs. Dexter is having some runs of VT and lots of PVCs. Her potassium is low. It has been corrected . She is no longer in atrial fibrillation. I think probably dealing with proarrhythmic effect from a very high dose of sotalol. She is recommended to reduce it, gave her magnesium, document, her magn esium level is good and see what that does for an arrhythmia. May have to avoid antiarrhythmic drugs completely, appears to be more VT, would consider a proarrhythmic effect with the drug at this point . ELLEN/SAILAJA Voice ID: [id number] Report ID: [id number]
--- NOTE | 2019-03-18 16:38 | PN ---
Subjective: The patient is lying in bed. No new complaints. Diarrhea has improved. Objective: Vital Signs: Temperature 98, pulse 82, respiration 18, blood pressure 147/73. Lungs: Basal crackles. Heart: S1, S2. Regular. Abdomen: Soft, nontender. Bowel sounds present. Extremity: No edema. Laboratory Data: From yesterday WBC 12.3, hemoglobin 13.2, platelets 362. Chemistry shows sodium 14 1, potassium 3.2, chloride 103, bicarb 33, BUN 6, creatinine 0.37, glucose 106. Blood culture Neisse ibanca meningitidis. Assessment And Plan: Continue antibiotic for 2 weeks for meningitis and bacteremia. We will follow the patient closely. NF/MODL Voice ID: [id number] Report ID: [id number]
[2019-03-18] MEDS ORDERED: POTASSIUM 25 MEQ EFFERV TAB PO ONE (18:43)
--- NOTE | 2019-03-18 20:55 | PN ---
Date of Progress Note: 03/18/2019 Subjective: The patient seen and examined. Chart reviewed and case discussed with RN. The patient was having multiple episodes of ventricular tachycardia and ventricular bigeminy. This morning was asymptomatic. The patient denies any other symptoms. States the diarrhea is getting better. Medications: List reviewed. Physical Examination: Vital Signs: Temperature 99, heart rate 81, blood pressure 145/72, respirations 15, O2 98% on room air. General: Awake, alert, oriented x3. Elderly female, not in any acute distress. CV: S1 and S2, irregularly irregular. Peripheral pulses present. Respiratory: Moving air well bilaterally. No wheezing. Gastrointestinal: Abdomen is soft, nontender, nondistended. Positive bowel sounds. Extremities: No clubbing, cyanosis, or edema. Neurologic: Nonfocal. Laboratory Data: Sodium 141, potassium 3.2, chloride 103, CO2 33, BUN 6, creatinine 0.37, glucose 106, calcium 8, magnesium 2.1. WBC pending. Blood cultures positive for listeria meningitis. Contacted lab for sensitivities which will have to be sent out. Assessment: A 78-year-old female with: 1. Acute meningitis secondary to history of meningitidis, improved. WBC trending down. 2. Bacteremia secondary to necessary meningitidis. Sensitivities pending. We will need 2 weeks of IV antibiotics. 3. Generalized weakness secondary to above. Continue PT. 4. Atrial fibrillation, paroxysmal, new onset. The patient down sinus rhythm ; however, having episodes of ventricular tachycardia. The dose of sotalol will be decreased. Appreciate Dr. Mireles' input. 5. Ventricular tachycardia likely proarrhythmic effect of sotalol per Cardiology as well as due to the hypokalemia and borderline magnesium. 6. Hypokalemia, replace and monitor. Likely secondary to diarrhea. 7. Diarrhea rule out clostridium difficile. The patient is on prophylaxis with Flagyl. 8. Hypotensive shock, resolved. 9. Acute metabolic encephalopathy, resolved. 10. Acute kidney injury, normalized. Creatinine is normalized. We will continue to monitor creatinine level. 11. Elevated liver enzymes secondary to sepsis. 12. Hypothyroidism. Continue Synthroid. 13. Deep venous thrombosis prophylaxis. The patient is already on Eliquis. Plan: Continue Rocephin and prophylaxis for C diff. Discharge to [facility] once accepted. We will replace potassium and magnesium, and monitor for further episodes of ventricular tachycardia. SA/MODL Voice ID: [id number] Report ID: [id number] MTDD
[2019-03-18] MEDS: ATORVASTATIN 20 MG TAB PO SCH (21:02)
[2019-03-19] MEDS: SOTALOL HCL 80 MG TAB PO SCH ×2 (05:46→17:45)
[2019-03-19 06:06] LABS: Absolute Lymphocytes (CBC) 1.3 K/uL (0.7-4.9); Basophils % 0.4 % (0-1.3); Eosinophils % 0.4 % (0-4.4); Hematocrit 36.6 % (36.0-45.0); Lymphocytes % 13.1 % (15.3-44.8); MPV 8.4 fL (7.6-11.3); Monocytes % 13.1 % (3.3-12.3); RBC Red Blood Cell Count 3.97 M/uL (3.86-4.86)
[2019-03-19 06:22] LABS: ALT/SGPT 174 U/L (12-78); AST/SGOT 43 U/L (15-37); Alkaline Phosphatase 66 U/L (45-117); BUN Blood Urea Nitrogen 7 mg/dL (7-18); Bicarbonate 31 mmol/L (21-32); Bilirubin Total 0.8 mg/dL (0.2-1.0); Glucose Level 92 mg/dL (74-106); Magnesium 1.8 mg/dL (1.8-2.4); Potassium 3.5 mmol/L (3.5-5.1); Protein, Total 6.1 g/dL (6.4-8.2); Sodium Level 139 mmol/L (136-145)
--- NOTE | 2019-03-19 07:36 | EKG ---
Test Date: 2019-03-19 Test Time: 06:12:31 Director Targeted Marketing: RT MEASUREMENT RESULTS: Intervals: Rate: 131 [place]: QRSD: 112 QT: 346 QTc: 510 [place]: P: [place]: QRS: -43 T: 102 INTERPRETIVE STATEMENTS: Atrial fibrillation with rapid ventricular response Left axis deviation Anterior infarct, age undetermined Abnormal ECG Compared to ECG 03/18/2019 08:19:51 Left-axis deviation now present Sinus rhythm no longer present Ventricular premature complex(es) no longer present Intraventricular conduction delay no longer present Myocardial infarct finding still present Electronically Signed On 03-19-19 07:35:12 CDT by Gorge Mireles
[2019-03-19] MEDS ORDERED: SOTALOL HCL 80 MG TAB PO ONE (08:53)
[2019-03-19] MEDS ORDERED: POTASSIUM 25 MEQ EFFERV TAB PO ONE (09:00)
[2019-03-19] MEDS ORDERED: MAGNESIUM SULFATE 1 gm IVPB 1 GM/100 ML BAG IV ONE (09:00)
[2019-03-19] MEDS: ENSURE ENLIVE 237 ML CAN PO SCH ×2 (09:00→21:00)
[2019-03-19] MEDS: NYSTATIN PWDR 100000 UNIT/GM TOP SCH ×2 (09:00→21:00)
[2019-03-19] MEDS: CHOLESTYRAMINE/ASP 4 GM/PKT PO SCH ×2 (10:06→17:44)
[2019-03-19] MEDS: APIXABAN 5 MG TABLET PO SCH ×2 (10:07→21:34)
[2019-03-19] MEDS: LOSARTAN POTASSIUM 50 MG TABLET PO SCH (10:07)
[2019-03-19] MEDS: LACTOBACILLUS/ACIDOPHILUS TAB PO SCH ×3 (10:08→21:33)
[2019-03-19] MEDS: CEFTRIAXONE/SWI 1gm 1 GM/10 ML SYR IV SCH (10:10)
[2019-03-19] MEDS: VANCOMYCIN ORAL SOLN 250 MG/5 ML OSYR PO SCH ×4 (10:11→21:34)
--- NOTE | 2019-03-19 17:04 | PN ---
Date of Progress Note: 03/19/2019 Subjective: The patient is seen and examined. Chart reviewed and case discussed with Dr. Lockett. The patient was actually discharged yesterday; however, due to [facility] concerned regarding AFib, the patient was not accepted. Medications: List reviewed. Physical Examination: Vital Signs: Temperature 98.4, heart rate 128, blood pressure 139/75, respirations 22, O2 94% on room air. General: Awake, alert, oriented x3. Elderly female. CV: S1, S2. Irregularly irregular. Peripheral pulses present. Respiratory: Moving air well bilaterally. No wheezing. Gastrointestinal: Abdomen is soft, nontender, nondistended. Positive bowel sounds. Extremities: No clubbing, cyanosis, or edema. Neurologic: Nonfocal. Laboratory Data: Sodium 139, potassium 3.5, chloride 103, CO2 31, BUN 7, creatinine 0.35, glucose 92, lactate 1.1, calcium 8.1, magnesium 1.8. AST 43, ALT 174, albumin is 2. WBC 10.1, H and H 12.9 and 36.6, platelets 361, neutrophils 73%. Blood cultures positive for Neisseria meningitidis. Assessment: A 78-year-old female with: 1. 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 The patient's baseline mental status back to baseline. Has completed 7 days of IV antibiotics. We will discontinue droplet precautions. 2. Bacteremia secondary to Neisseria meningitidis. Sensitivity is pending. Continue with long-term IV antibiotics for minimum of 2 weeks. 3. Atrial fibrillation, paroxysmal. The patient now back in sinus. Her Betapace dose increased to 160 today. We will monitor. 4. Generalized weakness. Continue PT. 5. Ventricular tachycardia, resolved. 6. Hypokalemia, replace and monitor. Likely secondary to diarrhea. 7. Diarrhea, Clostridium difficile ruled out. Continue prophylaxis with Flagyl per ID. 8. Septic shock, resolved. 9. Acute metabolic encephalopathy, resolved. 10. Acute kidney injury, normalized. 11. Elevated liver enzymes secondary to sepsis. 12. Hyperthyroidism. 13. Deep venous thrombosis prophylaxis. The patient is on Eliquis. Plan: Monitor on higher dose of sotalol, likely discontinue in the next 24 hours once cleared by Cardiology. /MODL Voice ID: [id number] Report ID: [id number] MTDD
[2019-03-19] MEDS: ATORVASTATIN 20 MG TAB PO SCH (21:34)
[2019-03-20] MEDS: SOTALOL HCL 80 MG TAB PO SCH (05:19)
[2019-03-20 05:25] LABS: ALT/SGPT 126 U/L (12-78); AST/SGOT 30 U/L (15-37); Alkaline Phosphatase 60 U/L (45-117); BUN Blood Urea Nitrogen 10 mg/dL (7-18); Bicarbonate 29 mmol/L (21-32); Bilirubin Total 0.8 mg/dL (0.2-1.0); Glucose Level 88 mg/dL (74-106); Magnesium 2.1 mg/dL (1.8-2.4); Potassium 3.4 mmol/L (3.5-5.1); Protein, Total 6.2 g/dL (6.4-8.2); Sodium Level 140 mmol/L (136-145)
[2019-03-20] MEDS: KCL 20 MEQ/100 mL IVPB 20 MEQ/100 ML BAG IV SCH ×2 (06:31→08:24)
--- NOTE | 2019-03-20 07:34 | EKG ---
Test Date: 2019-03-19 Test Time: 19:47:11 Corrective Therapist: RT Sunshine MEASUREMENT RESULTS: Intervals: Rate: 85 [place]: 170 QRSD: 116 QT: 478 QTc: 568 [place]: P: 60 [place]: 170 QRS: -34 T: 78 INTERPRETIVE STATEMENTS: Normal sinus rhythm Left axis deviation Anterior infarct, possibly acute Prolonged QT ACUTE NH Abnormal ECG Compared to ECG 03/19/2019 16:04:47 Left-axis deviation now present Prolonged QT interval now present Atrial fibrillation no longer present Left bundle-branch block no longer present ST (T wave) deviation no longer present Myocardial infarct finding still present Electronically Signed On 03-20-19 07:33:47 CDT by Juanito Locektt
--- NOTE | 2019-03-20 07:35 | EKG ---
Test Date: 2019-03-19 Test Time: 16:04:47 [place]: [facility] MEASUREMENT RESULTS: Intervals: Rate: 138 [place]: QRSD: 110 QT: 330 QTc: 499 [place]: P: ME: QRS: -22 T: 98 INTERPRETIVE STATEMENTS: Atrial fibrillation with rapid ventricular response Incomplete left bundle branch block Abnormal ECG Compared to ECG 03/19/2019 06:12:31 Left bundle-branch block now present ST (T wave) deviation now present Left-axis deviation no longer present Myocardial infarct finding still present Electronically Signed On 03-20-19 07:34:19 CDT by Juanito Lockett
[2019-03-20] MEDS: CHOLESTYRAMINE/ASP 4 GM/PKT PO SCH (08:23)
[2019-03-20] MEDS: LACTOBACILLUS/ACIDOPHILUS TAB PO SCH (08:23)
[2019-03-20] MEDS: APIXABAN 5 MG TABLET PO SCH (08:23)
[2019-03-20] MEDS: LOSARTAN POTASSIUM 50 MG TABLET PO SCH (08:23)
[2019-03-20] MEDS: CEFTRIAXONE/SWI 1gm 1 GM/10 ML SYR IV SCH (08:24)
[2019-03-20] MEDS: NYSTATIN PWDR 100000 UNIT/GM TOP SCH (08:25)
[2019-03-20] MEDS: VANCOMYCIN ORAL SOLN 250 MG/5 ML OSYR PO SCH ×2 (08:27→12:35)
[2019-03-20] MEDS: ENSURE ENLIVE 237 ML CAN PO SCH (08:27)
--- NOTE | 2019-03-20 12:34 | PN ---
Ms. Dexter has been followed by us intermittently. She had come in with Neisseria meningitis. Sepsi s. She had atrial fibrillation that was initially treated with beta-blockers and digoxin that failed . She was on Betapace 160 mg in the morning and 80 in the evening, but she had another episode of at rial fibrillation yesterday. I recommended we stay on 160 mg b.i.d. for now. If she continues to solano ve atrial fibrillation despite the Betapace, we may have to change to amiodarone or consider ablation down the road. The case was discussed with her primary care physician. JULIO C/SAILAJA Voice ID: [id number] Report ID: [id number]
--- NOTE | 2019-03-20 15:04 | EKG ---
Test Date: 2019-03-19 Test Time: 19:47:36 Switch Adjuster: RT Sunshine MEASUREMENT RESULTS: Intervals: Rate: 89 [place]: 174 QRSD: 114 QT: 468 QTc: 569 [place]: P: 66 [place]: 174 QRS: -43 T: 72 INTERPRETIVE STATEMENTS: Normal sinus rhythm Left axis deviation Anterior infarct, possibly acute Prolonged QT Abnormal ECG Compared to ECG 03/19/2019 19:47:11 No significant changes Electronically Signed On 03-20-19 15:03:12 CDT by Gorge Mireles
--- NOTE | 2019-03-21 03:51 | DS ---
Date of Discharge: 03/20/2019 Consultants: Dr. Lockett and Dr. Mireles with Cardiology. Dr. Dean with Infectious Disease. Procedures: Lumbar puncture on 03/09/2019. Admitting Diagnoses: 1.Acute metabolic encephalopathy. 2.Sepsis. 3.Hypertensive shock. 4.Acute kidney injury. 5.Elevated liver enzymes secondary to sepsis. 6.Hypokalemia. 7.Hyperthyroidism. 8.Encephalitis. Discharge Diagnoses: 1.Meningitis secondary to Neisseria meningitidis. 2.Septic shock. 3.Bacteremia secondary to Neisseria meningitidis. 4.Atrial fibrillation, new onset. 5.Generalized weakness. 6.Ventricular tachycardia, resolved. 7.Hypokalemia, replaced. 8.Diarrhea, improving. 9.Acute metabolic encephalopathy, resolved. 10.Disuse myopathy. 11.Acute kidney injury, normalized. 12.Elevated liver enzymes secondary to sepsis. 13.Hyperthyroidism. Hospital Course: The patient is a 78-year-old female with past medical history of hyperthyroidism, c omes in with hypotensive shock, sepsis, unclear etiology initially, who was later found to have menin gitis. Broad-spectrum IV antibiotics were initiated. Cultures were obtained. Her blood cultures ca me back for Neisseria meningitidis. Her CSF culture did not show any growth. C. diff assay was nega tive. The patient did have bacterial antigen positive for Neisseria meningitidis after lumbar punctu re. Her condition improved slowly. Her white count normalized. Her mental status improved. She wa s seen by Infectious Disease Dr. Dean for bacteremia and meningitis. He recommended 2 weeks of IV antibiotics for the bacteremia. Sensitivities have been sent out and are currently pending. The patient also developed new onset atrial fibrillation while in the hospital. This was likely comb ination of the sepsis and her electrolyte abnormalities. She was started on Betapace and was started on anticoagulation. The patient was also seen by Dr. Lockett and Dr. Mireles with Cardiology. Echoc ardiogram was done, which showed EF of 44%. No effusions. Overall, the patient did well. Her heart rate was difficult to control initially. Her Betapace dose had to be increased. The patient did de velop severe disuse myopathy, was very weak, and required physical therapy and occupational therapy. The patient's liver enzymes did improve slowly. The patient was then referred to [facility]. Followup: The patient is follow up with her PCP in 2 weeks. Follow up with pit supervisor, Dr. Michi bates, in 2 weeks. Return to ER for worsening condition. Follow up with Infectious Disease doctor in 2 weeks. The patient to have weekly CBC, CMP, ESR, and CRP while on IV antibiotics. Repeat blood cult ures once IV antibiotics are completed. Diet: Heart-healthy. Activity: Fall precautions. Physical Examination: General: Awake, alert, oriented x3. Elderly female. CV: S1, S2. No murmurs, now back in sinus rhythm. Respiratory: Moving air well bilaterally. Abdomen: Soft, nontender, nondistended. Positive bowel sounds. Extremities: No clubbing, cyanosis, or edema. Neuro: Nonfocal. Speech is normal. Total time spent discharging the patient was 41 minutes. MADDY Voice ID: [id number] Report ID: [id number]
== END 2019-03-20 13:18 | DRG 871 ==
LOC: ER 13:39 → ERHOLD 17:26 → 4TH 17:56 → 3RD-ICU 22:07 → 2ND 03-13 12:50 → 4TH 03-13 22:01
PROVIDERS: ADMIT Family Medicine; ATTEND Family Medicine
PROC: 009U3ZX Drainage of Spinal Canal, Percutaneous Approach, Diagnostic (ICD-10-PCS; principal; 2019-03-09)
PROC: 02HV33Z Insertion of Infusion Device into Superior Vena Cava, Percutaneous Approach (ICD-10-PCS; 2019-03-09)
DX: A39 Meningococcal infection (principal); A39.0 Meningococcal meningitis; G93.41 Metabolic encephalopathy; R65.21 Severe sepsis with septic shock; N17.9 Acute kidney failure, unspecified; E87.0 Hyperosmolality and hypernatremia; I47.2 Ventricular tachycardia; I48.0 Paroxysmal atrial fibrillation; I49.3 Ventricular premature depolarization; T44.7X5A Adverse effect of beta-adrenoreceptor antagonists, initial encounter; E87.6 Hypokalemia; R19.7 Diarrhea, unspecified; E05.90 Thyrotoxicosis, unspecified without thyrotoxic crisis or storm; I10 Essential (primary) hypertension; E83.42 Hypomagnesemia; E78.5 Hyperlipidemia, unspecified; G72.89 Other specified myopathies
CPT/HCPCS: 36415; 51702; 70450; 71045; 74176; 77003; 80048; 80053; 80076; 80202; 81003; 81015; 82805; 82945; 82962; 83605; 83690; 83735; 84100; 84132; 84145; 84157; 84439; 84443; 85025; 85027; 85610; 85730; 87040; 87045; 87046; 87070; 87081; 87086; 87088; 87177; 87205; 87209; 87493; 87804; 89050; 89055; 92526; 92610; 93005; 93306; 94760; 97116; 97162; 97530; 99285; J0133; J0295; J0610; J0692; J0696; J1100; J1650; J1940; J2543; J2997; J3010; J3370; J3475; J7030